=== PATIENT | male | born 1930 | race Caucasian/White ===

== ENCOUNTER 2017-07-07 11:38 | Inpatient (IN) | payer MEDICARE, BC ==
[2017-07-07 12:12] LABS: INR-International Normal Ratio 1.4; Prothrombin Time 17.9 SEC (12.0-14.7)
[2017-07-07 12:14] LABS: #Basophils 0.1 thou/uL (0.0-0.2); #Eosinphils 0.1 thou/uL (0.0-0.7); #Lymphocytes 0.9 thou/uL (1.20-3.40); #Monocytes 0.6 thou/uL (0.11-0.59); #Neutrophils 7.7 thou/uL (1.40-6.50); %Eosinophils 0.6 % (0.0-10.0); %Lymphocytes 9.3 % (21.0-51.0); %Monocytes 6.2 % (0.0-10.0); %Neutrophils 82.9 % (42.0-75.0); Hemoglobin 15.2 g/dL (14.0-18.0); Mean Corpuscular HGB CONC 34.9 g/dL (32.0-36.0); Mean Corpuscular Hemoglobin 31.4 pg (27.0-31.0); Mean Corpuscular Volume 89.9 fl (80.0-94.0); Mean Platelet Volume 7.5 fL (7.4-10.4); Platelet Count 194 thou/uL (130-400); RBC Distribution Width 11.6 % (11.5-14.5); Red Blood Cell (RBC) Count 4.84 mill/uL (4.70-6.10); White Blood Cell (WBC) Count 9.3 thou/uL (4.8-10.8)
[2017-07-07 12:20] LABS: ALT (SGPT) 14 U/L (8-55); AST (SGOT) 15 U/L (5-34); Albumin 4.1 g/dL (3.4-4.8); Alkaline Phosphatase 68 U/L (40-150); Anion Gap 19 mmol/L (10-20); BUN (Urea Nitrogen) 28 mg/dL (8.4-25.7); CK (CPK) 68 U/L (30-200); CKMB 1.5 ng/mL (0-6.6); Calc. Creatinine Clearance 0 mL/min (70-130); Calcium 9.8 mg/dL (7.8-10.44); Carbon Dioxide 21 mmol/L (23-31); Chloride 102 mmol/L (98-107); Estimated GFR-MDRD 43; Globulin 3.2 g/dL (2.4-3.5); Glucose 218 mg/dL (83-110); Lipase 41 U/L (8-78); Potassium 4.6 mmol/L (3.5-5.1); Protein, Total 7.3 g/dL (5.8-8.1); Sodium 137 mmol/L (136-145); Troponin I Less than 0.010 ng/mL (< 0.028)
--- NOTE | 2017-07-07 13:09 | CT ---
BRAIN CT WITHOUT IV CONTRAST: History: 86-year-old male with history of syncope, puncture wound to head. FINDINGS: There is atrophy and chronic white matter ischemic changes. There is a small focus of somewhat lobula osmin acute hemorrhage adjacent to the falx at the frontal region on the left side, evidence for a smal l subdural hemorrhage. There may be a very tiny subarachnoid component. No mass or midline shift. IMPRESSION: Small focus of acute hemorrhage in the left parafalcine region which I favor to be a small subdural h emorrhage. There may be a small subarachnoid component. No mass effect or midline shift. Findings were discussed with Dr. Conner at 1230 p.m. Code CR POS: [facility]
--- NOTE | 2017-07-07 13:11 | RAD ---
UPRIGHT PORTABLE CHEST ONE VIEW: History: 86-year-old male with history of syncope, seizure like activity, head injury. Comparison: 06-13-10 FINDINGS: Heart size is within normal limits. The lungs are clear. Left ICD. IMPRESSION: No acute intrathoracic disease. Borderline sized heart. Atherosclerosis of the aorta. Stable from [place] or study. POS: [facility]
--- NOTE | 2017-07-07 14:01 | CON ---
DATE OF CONSULTATION: 07/07/2017 ATTENDING PHYSICIAN: Prieto Rincon M.D. HISTORY OF PRESENT ILLNESS: The patient is an 86-year-old male with a past medical history of coronary artery disease with pacemaker defibrillator; diabetes; hypertension; hyperlipidemia; pul monary disease, on Coumadin who presented to [facility] in [facility] after syncope versus fall while working out in [employer]. The patient reports that he has been working out, was sitting in a chair and got up suddenly when he believes he passed out. He hit the back of his head on the floor with short period of LOC. [facility], where CT head was done on arrival. CT head was notable for a small intrac ranial hemorrhage in the left frontal region along the longitudinal fissure. There is no mass effect or midline shift. The patient's INR is 1.4. I am seeing the patient at the bedside. He is awake a nd alert, no acute distress. GCS of 15. He has no focal neurologic deficits appreciated. PAST MEDICAL HISTORY: Coronary artery disease, pacemaker defibrillator, diabetes, hypertension, hype rlipidemia, and pulmonary disease. PAST SURGICAL HISTORY: Partial lung removal, pacemaker defibrillator. SOCIAL HISTORY: The patient does not smoke, drink or use any drugs. ALLERGIES: He has no known drug allergies. FAMILY HISTORY: Noncontributory. PHYSICAL EXAMINATION: CONSTITUTIONAL: Awake and alert, no acute distress. GCS of 15. HEAD: There is a small laceration to the posterior aspect of the scalp. No active bleeding. No sig nificant soft tissue swelling. EYES: Pupils are equal and reactive to light. Extraocular movements intact. ENT: Oral mucosa is pink, intact, moist. No evidence of trauma. He has a normal voice. NECK: Nontender to palpation. Free active range of motion. No meningismus or nuchal rigidity. CARDIOVASCULAR: Regular rate and rhythm. LUNGS: The patient is breathing comfortably with symmetric chest expansion. No evidence of dyspnea. MUSCULOSKELETAL: Good muscle tone to bilateral upper and lower extremities. No focal motor weakness . No deformities or trauma appreciated. NEUROLOGIC: He is A and O x4. Normal [id number]. Normal cranial nerve exam. No speech changes . No focal neurologic deficits are appreciated. ASSESSMENT AND PLAN: This is an 86-year-old male, status post syncope with fall, hitting h is head on the floor after he got up suddenly in a chair with CT head which was notable for small lef t frontal intracranial hemorrhage along the longitudinal fissure. There is no midline shift or mass effect. The patient is on Coumadin and INR is 1.4 here in the Emergency Department. We will stop an y Coumadin or other anticoagulants. The patient will be admitted to the ICU for close monitoring, fr equent neuro checks, head of bed will be elevated at 30 degrees. We will recommend a repeat head CT first thing in the morning, which I have ordered: The patient will be admitted primary to the Trauma Service. Please reach out to the Neurosurgery Service for additional questions or concerns.
[2017-07-07] MEDS ORDERED: Adacel (T-DAP) 0.5 ML VIAL ONE (14:56)
[2017-07-07 15:21] LABS: Troponin I Less than 0.010 ng/mL (< 0.028)
[2017-07-07 15:49] VITALS: BMI 32.7
[2017-07-07] MEDS ORDERED: Dextrose 50% Abboject 50 ML SYRINGE SLOW IVP PRN (16:56)
[2017-07-07] MEDS ORDERED: Acetaminophen 500 MG TAB PO PRN (16:56)
[2017-07-07] MEDS ORDERED: Dextrose 5% in Water 1,000 ML IV PRN (16:56)
[2017-07-07] MEDS ORDERED: Insulin Regular 300 UNITS/3 ML VIAL SC PRN (16:56)
[2017-07-07] MEDS ORDERED: Sodium Chloride 0.9% 1,000 ML IV SCH (17:00)
[2017-07-07] MEDS ORDERED: Terazosin HCl 5 MG CAP PO SCH (21:00)
[2017-07-07] MEDS ORDERED: GLUCOSAMINE SULFATE 500 MG PO SCH (21:00)
[2017-07-07] MEDS ORDERED: Melatonin 3 MG TAB PO SCH (21:00)
[2017-07-07] MEDS ORDERED: Simvastatin 5 MG TAB PO SCH (21:00)
--- NOTE | 2017-07-07 22:24 | ULT ---
BILATERAL CAROTID DUPLEX ULTRASOUND: HISTORY: Syncope. FINDINGS: Real-time color Doppler evaluation of the right and left carotid system shows some mild intimal thick ening and plaque formation bilaterally. On the right side, the peak systolic velocities of the common carotid are 86 cm per second. The inte rnal carotid velocity is 55 cm per second. The external carotid velocities are 81 cm per second. The left side shows peak systolic velocities of the common carotid at 96 cm per second. Internal car otid velocity is 55 cm per second. External carotid velocity is 58 cm per second. Vertebral flow is antegrade bilaterally. IMPRESSION: No evidence of hemodynamically significant stenosis of either internal carotid artery. POS: [facility]
[2017-07-07] MEDS: Carvedilol 3.125 MG TAB PO SCH (22:29)
[2017-07-07] MEDS: Furosemide 40 MG TAB PO SCH (22:30)
[2017-07-07] MEDS: Bupropion 100 MG SR TAB PO SCH (22:30)
--- NOTE | 2017-07-08 01:57 | HP ---
DATE OF ADMISSION: 07/07/2017 ADMITTING PHYSICIAN: Dr. Smith Sagastume. CONSULTING PHYSICIAN: Dr. Prieto Rincon, Neurosurgery. HISTORY OF PRESENT ILLNESS: Mr. Montoya is an 86-year-old male who was working out at the gym today w hen he halts to rest on a bench to recover. He got up and took a few steps when he blacked out, fall ing to the ground. He was taken to [facility] ER where a subdural hematoma was identified . He was then transported to [facility] and directly admitted to the intermediate care area . He was evaluated in [facility] ER by Neurosurgery. He was admitted to the hospital by Trauma Surgery and will continue to be followed closely by Neurosurgery as well. He reports that he has had several episodes of blacking out when he stands up from a seated or lying down position. He has past medical history of pacemaker placement. He was GCS of 15 during evaluation and remains GCS 15. He denies headache, dizziness, change in vision. He denies feeling dizziness or lightheaded at the current time. PAST MEDICAL HISTORY: 1. Anxiety. 2. Congestive heart failure. 3. Coronary artery disease. 4. Depression. 5. Diabetes. 6. Hyperlipidemia. 7. Hypertension. 8. Obstructive sleep apnea, requiring use of CPAP. 9. Dysthymic disorder. 10. Acquired hypothyroidism. 11. Chronic atrial fibrillation. 12. Coronary atherosclerosis. 13. Chronic dermatitis due to solar radiation. 14. Actinic keratosis. 15. Inflamed seborrheic keratosis. 16. Neoplasm of uncertain behavior of skin. 17. Symptomatic bradycardia. 18. Ischemic cardiomyopathy. PAST SURGICAL HISTORY: 1. Pacemaker placement. 2. Angioplasty. 3. Right lower lobe lung resection. 4. Umbilical hernia repair. SOCIAL HISTORY: The patient denies alcohol use, drug use or tobacco use. ALLERGIES: No known drug allergies. CURRENT MEDICATIONS: 1. Alprazolam 1 mg t.i.d. 2. Aspirin 325 mg daily. 3. Glyburide/metformin 2.5/500 two tabs b.i.d. 4. Nitroglycerin 0.4 mg sublingual every 5 minutes p.r.n. 5. Warfarin 5 mg p.o. daily. 6. Bupropion 100 mg b.i.d. 7. Carvedilol 3.125 mg b.i.d. 8. Prozac 20 mg daily. 9. Furosemide 40 mg b.i.d. 10. Glucosamine 500 mg daily. 11. Inositol 500 mg daily. 12. Levothyroxine 25 mcg daily. 13. Losartan 25 mg daily. 14. Magnesium 250 mg daily. 15. Melatonin 5 mg at bedtime. 16. Multivitamin, iron, minerals/folic acid 1 p.o. daily. 17. Restasis 0.05% each eye daily. 18. Simvastatin 10 mg p.o. at bedtime. 19. Terazosin 10 mg p.o. at bedtime. 20. Vitamin B one tablet daily. LABORATORY STUDIES: Hematology: WBC 9.3, RBC 4.84, hemoglobin 15.2, hematocrit 43.5, platelets 194. Coagulation: PT 17.9, INR 1.4. Chemistry: Sodium 137, potassium 4.6, chloride 102, carbon dioxid e 21, BUN 28, creatinine 1.56, glucose 218. DIAGNOSTIC IMAGING: Parafalcine intracranial hemorrhage. EKG, paced rhythm. REVIEW OF SYSTEMS: Constitutional: The patient denies chills, fever, recent weight loss or generali zed malaise. HEENT: Denies headache, dizziness, rhinorrhea, otorrhea, sore throat or neck pain. Re spiratory/chest: The patient denies chest tenderness, shortness of breath, wheezing, or cough. Card iovascular: Denies chest pain. Reports syncopal episode. Reports multiple syncopal episodes in rec ent past. Gastrointestinal: Denies abdominal pain, appetite change, diarrhea, nausea, vomiting, or constipation. Genitourinary: Denies hematuria or dysuria. Musculoskeletal: Denies arthralgias, my algias. Skin: Denies rash, denies integumentary trauma. Neurologic: Denies headache, denies dizzi ness. PHYSICAL EXAMINATION: VITAL SIGNS: Temperature 98.9, pulse 79, respirations 18, O2 sat 100% room air, blood pressure 123/6 2. CONSTITUTIONAL: Well-developed, well-nourished male, in no acute distress, nontoxic appearing. HEENT: Atraumatic, normocephalic. Pupils are equal, round, and reactive to light. No posterior nec k tenderness. NECK: Trachea midline. CARDIOVASCULAR: Regular rate and rhythm. Heart sounds normal. RESPIRATORY/CHEST: Chest movement symmetrical. Bilateral breath sounds clear. No respiratory distr ess. ABDOMEN: Soft, nontender, nondistended. Pelvis stable. EXTREMITIES: Moves all extremities well. Cap refill brisk. Neurovascularly intact. NEUROLOGIC: GCS 15, awake, alert, and oriented x3. No focal deficits. ASSESSMENT: 1. An 86-year-old male status post ground level fall. 2. Small subdural hematoma. 3. Syncopal episode with multiple syncopal episodes in recent past. 4. Past medical history of pacemaker placement. 5. Past medical history of hypertension, present on arrival. 6. Past medical history of diabetes, present on arrival. 7. Past history of depression, present on arrival. 8. Past history of thyroid disease, present on arrival. 9. Past history of anxiety, present on arrival. PLAN: 1. Admit to intermediate care unit. 2. Serial neurologic exams. 3. Consult to Neurosurgery, Dr. Rincon. 4. Repeat CT scan of the brain in a.m. 5. Head of bed at 30 degrees. 6. Clear liquid diet. 7. Syncopal workup including EKG, echocardiogram, pacemaker interrogation, bilateral carotid ultraso und. 8. Hold Coumadin and aspirin. 9. Tylenol p.r.n. for headache. 10. Resume home medications as appropriate. The patient was reviewed with Dr. Sagastume who agrees with plan.
[2017-07-08 04:46] LABS: #Eosinphils 0.1 thou/uL (0.0-0.7); #Lymphocytes 1.4 thou/uL (1.20-3.40); #Monocytes 0.8 thou/uL (0.11-0.59); #Neutrophils 5.8 thou/uL (1.40-6.50); %Basophils 0.2 % (0.0-1.0); %Eosinophils 0.9 % (0.0-10.0); %Lymphocytes 17.4 % (21.0-51.0); %Monocytes 10.3 % (0.0-10.0); %Neutrophils 71.1 % (42.0-75.0); Hemoglobin 13.5 g/dL (14.0-18.0); Mean Corpuscular HGB CONC 33.8 g/dL (32.0-36.0); Mean Corpuscular Hemoglobin 31.1 pg (27.0-31.0); Mean Corpuscular Volume 91.8 fl (80.0-94.0); Platelet Count 194 thou/uL (130-400); Red Blood Cell (RBC) Count 4.35 mill/uL (4.70-6.10); White Blood Cell (WBC) Count 8.1 thou/uL (4.8-10.8)
[2017-07-08 04:50] LABS: INR-International Normal Ratio 1.5; PTT 33.4 SEC (22.9-36.1); Prothrombin Time 18.7 SEC (12.0-14.7)
[2017-07-08 04:55] LABS: Anion Gap 11 mmol/L (10-20); BUN (Urea Nitrogen) 27 mg/dL (8.4-25.7); Calc. Creatinine Clearance 53 mL/min (70-130); Calcium 9.3 mg/dL (7.8-10.44); Carbon Dioxide 29 mmol/L (23-31); Chloride 101 mmol/L (98-107); Estimated GFR-MDRD 44; Glucose 158 mg/dL (83-110); Phosphorus 2.2 mg/dL (2.3-4.7); Potassium 4.3 mmol/L (3.5-5.1); Sodium 137 mmol/L (136-145)
[2017-07-08] MEDS ORDERED: Levothyroxine Sodium 25 MCG TAB PO SCH (06:00)
--- NOTE | 2017-07-08 07:41 | CT ---
PRELIMINARY REPORT/[facility]/EMERGENTY AFTER-HOURS PROCEDURE CT Head Without Intravenous Contrast EXAM DATE/TIME: Exam ordered 07/08/2017 5:46 AM CLINICAL HISTORY: 86 years old, male; Condition or disease; Other: Follow up ich TECHNIQUE: Axial computed tomography images of the head/brain without intravenous contrast. COMPARISON: No relevant prior studies available. Patient was scanned at outside facility. FINDINGS: Brain: There is acute intracranial hemorrhage seen overlying the LEFT parafalcine frontal lobe. There is a LEFT frontoparietal convexity hematoma with blood in different stages suggestive of acute on ch ronic subdural hemorrhage. No significant white matter disease. Ventricles: Normal. No ventriculomegaly. Bones/joints: Normal. No acute fracture. Soft tissues: Normal. Sinuses: Unremarkable as visualized. No acute sinusitis. Mastoid air cells: Unremarkable as visualized. No mastoid effusion. 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 Thank you for allowing us to participate in the care of your patient. Dictated and Authenticated by: Kimani Sidhu MD 07/08/2017 6:23 AM Central Time ([place] & [place]) FINAL REPORT NONCONTRAST HEAD CT: COMPARISON: 07/07/17. HISTORY: Intracranial hemorrhage. Followup examination. TECHNIQUE: A noncontrast head CT is performed from the skull base to the skull vertex. FINDINGS: This report is in agreement with the preliminary report by [facility]. Redemonstration of intracranial hemo rrhage along the medial aspect of the left frontal extraaxial and intraaxial spaces suggesting a comb ination of cortical and subarachnoid blood. Additional subarachnoid blood is noted along the left fr ontotemporal convexity, unchanged. There do appear to be some increased densities along the left tem poral convexity suggesting subacute and/or possibly chronic subdural blood. IMPRESSION: Intracranial hemorrhage as described above. Continued surveillance. POS: [facility]
[2017-07-08] MEDS ORDERED: INOSITOL PO SCH (09:00)
[2017-07-08] MEDS ORDERED: Losartan 25 MG TAB PO SCH (09:00)
[2017-07-08] MEDS ORDERED: FLUoxetine HCl 20 MG CAP PO SCH (09:00)
[2017-07-08] MEDS ORDERED: cycloSPORINE 0.05% Ophthalmic Droperette EA EYE SCH (09:00)
[2017-07-08] MEDS ORDERED: Magnesium Oxide 250 MG TAB PO SCH (09:00)
[2017-07-08] MEDS ORDERED: Multivitamin W/ Minerals 1 TAB PO SCH (09:00)
[2017-07-08] MEDS ORDERED: GLUCOSAMINE SULFATE 500 MG PO SCH (09:00)
[2017-07-08] MEDS ORDERED: Famotidine 20 MG TAB PO SCH (09:00)
[2017-07-08] MEDS ORDERED: Stress 600 With Zinc 1 TAB PO SCH (09:00)
[2017-07-08] MEDS: Bupropion 100 MG SR TAB PO SCH (09:03)
[2017-07-08] MEDS: Carvedilol 3.125 MG TAB PO SCH (09:03)
[2017-07-08] MEDS: Furosemide 40 MG TAB PO SCH (09:03)
--- NOTE | 2017-07-08 14:34 | EKG ---
Test Reason : Blood Pressure : / mmHG Vent. Rate : 077 BPM Atrial Rate : 049 BPM P-R Int : 000 ms QRS Dur : 144 ms QT Int : 424 ms P-R-T Axes : 000 151 002 degrees QTc Int : 479 ms Ventricular-paced rhythm Underlying rhythm atrial fibrillation Confirmed by DR. Jacquelien LONDONO ([id number]) on 07/08/2017 2:33:52 PM Referred By: TERRENCE Confirmed By:DR. Jacqueline LONDONO
[2017-07-08 15:45] VITALS: BP 105/63; TEMP 98.6
== END 2017-07-08 17:16 | disposition home or self-care (01) | DRG 66 ==
LOC: SCSER 11:38 → IMCU/EMU 12:40
PROVIDERS: ADMIT Surgery; ATTEND Surgery
DX: I62.00 Nontraumatic subdural hemorrhage, unspecified (principal); F41.9 Anxiety disorder, unspecified; I25.10 Atherosclerotic heart disease of native coronary artery without angina pectoris; F32.9 Major depressive disorder, single episode, unspecified; E11.9 Type 2 diabetes mellitus without complications; E78.5 Hyperlipidemia, unspecified; I10 Essential (primary) hypertension; G47.33 Obstructive sleep apnea (adult) (pediatric); E03.9 Hypothyroidism, unspecified; I48.2 Chronic atrial fibrillation; L57.8 Other skin changes due to chronic exposure to nonionizing radiation; Z85.828 Personal history of other malignant neoplasm of skin; R40.2413 Glasgow coma scale score 13-15, at hospital admission; Z95.810 Presence of automatic (implantable) cardiac defibrillator; S01.01XA Laceration without foreign body of scalp, initial encounter
CPT/HCPCS: 36415; 36416; 70450; 71045; 80048; 80053; 82550; 82553; 83690; 83735; 84100; 84484; 85025; 85610; 85730; 90471; 90715; 93005; 93010; 93306; 93880; G8978-GP-CI; G8979-GP-CI; G8980-GP-CI

== ENCOUNTER 2017-08-18 10:14 | Outpatient (CLI) | payer MEDICARE, BC ==
--- NOTE | 2017-08-18 11:51 | CT ---
CT BRAIN: History: Follow up subdural hematoma. Technique: Noncontrast enhanced CT images of the brain obtained. Date: 08-18-17 Comparison: 07-18-17 FINDINGS: There has been interval resolution of the left parafalcine hemorrhage. There is diffuse cortical atrophy seen. There are bilateral subdural chronic hematomas, definitely larger on the left than on the right. Maxi mum thickness in the left subdural collection measures approximately 12 mm while on the right approxi mately 5 mm. Both subdural collections contain some mixed echogenic material, definitely denser than on a previous comparison exam suggesting some chronic and some acute components. No significant midline shift is seen. IMPRESSION: Mixed density bilateral subdural hematomas, larger on the left than on the right. POS: [facility]
== END 2017-08-18 10:15 | disposition home or self-care (01) ==
LOC: TBSIIMAG 10:14
PROVIDERS: ATTEND Neurological Surgery
DX: I62.00 Nontraumatic subdural hemorrhage, unspecified (principal)
CPT/HCPCS: 70450

== ENCOUNTER 2017-09-25 14:24 | Outpatient (CLI) | payer MEDICARE, BC ==
--- NOTE | 2017-09-25 15:56 | CT ---
CT BRAIN WITHOUT CONTRAST: HISTORY: Subdural hematoma. I62.03. COMPARISON: CT brain 08/15/17. FINDINGS: The left convexity subdural hematoma has markedly decreased in size. The right convexity subdural he matoma also is markedly decreased in size. Using the same max plan of measurement, the left subdural hematoma measures up to 6 mm, previously 11 mm. The right convexity subdural hematoma measures appr oximately 2 mm, previously just under 5 mm. No midline shift. No significant mass effect. The sulc i are patent. No acute infarction. The paranasal sinuses and mastoids appear improved. IMPRESSION: Improving bilateral subdural hematomas. POS: [facility]
== END 2017-09-25 14:25 | disposition home or self-care (01) ==
LOC: TBSIIMAG 14:24
PROVIDERS: ATTEND Neurological Surgery
DX: I62.00 Nontraumatic subdural hemorrhage, unspecified (principal)
CPT/HCPCS: 70450

== ENCOUNTER 2019-07-02 14:17 | Inpatient (IN) | payer MEDICARE, BC ==
[2019-07-02] MEDS ORDERED: Piperacillin/Tazobactam 4.5 GM VIAL ONE (14:35)
[2019-07-02] MEDS ORDERED: Vancomycin 1 GM/200 ML BAG ONE (14:42)
[2019-07-02 14:59] LABS: Hemoglobin 13.1 g/dL (14.0-18.0); Mean Corpuscular Hemoglobin 30.3 pg (27.0-31.0); Mean Corpuscular Volume 94.7 fL (78.0-98.0); Mean Platelet Volume 8.1 fL (7.4-10.4); Platelet Count 310 thou/uL (130-400); RBC Distribution Width 13.2 % (11.5-14.5); Red Blood Cell (RBC) Count 4.32 mill/uL (4.70-6.10); White Blood Cell (WBC) Count 28.8 thou/uL (4.8-10.8)
[2019-07-02 15:00] LABS: INR-International Normal Ratio 2.9; Prothrombin Time 30.4 SEC (12.0-14.7)
[2019-07-02 15:01] LABS: PTT 40.3 SEC (22.9-36.1)
[2019-07-02 15:05] LABS: Bilirubin Negative (Negative); Blood, Urine Negative (Negative); Clarity Clear (Clear); Glucose, Urine (Dipstick) Normal (Negative); Leukocyte Negative Leu/uL (Negative); Nitrite Negative (Negative); Protein, Urine (Dipstick) 20 mg/dL (Neg-Trace); Urobilinogen Normal mg/dL (Less than 2)
[2019-07-02 15:08] LABS: ALT (SGPT) 70 U/L (8-55); AST (SGOT) 48 U/L (5-34); Albumin 2.5 g/dL (3.4-4.8); Alkaline Phosphatase 193 U/L (40-110); Anion Gap 12 mmol/L (10-20); BUN (Urea Nitrogen) 28 mg/dL (8.4-25.7); CK (CPK) 14 U/L (30-200); Calc. Creatinine Clearance 0 mL/min (70-130); Calcium 8.9 mg/dL (7.8-10.44); Carbon Dioxide 34 mmol/L (23-31); Chloride 97 mmol/L (98-107); Estimated GFR-MDRD 56; Globulin 3.7 g/dL (2.4-3.5); Glucose 156 mg/dL (83-110); Potassium 3.8 mmol/L (3.5-5.1); Protein, Total 6.2 g/dL (5.8-8.1); Sodium 139 mmol/L (136-145)
[2019-07-02 15:15] LABS: Band 7 % (5-11); Lymphocytes 6 % (21-51); MDiff Complete? YES; Monocytes 6 % (0-10); Neutrophil 81 % (42-75); Platelet Morphology Comment Appears Adequate; RBC Morphology Normal
--- NOTE | 2019-07-02 15:45 | RAD ---
CHEST ONE VIEW: 07/02/19 INDICATION: History of ruptured gallbladder and abdominal pain. COMPARISON: Prior exam dated 07/01/19. FINDINGS: Right sided pleural effusion persists. Cardiomegaly is stable appearing. Tiny left pleural effusion i s similar appearing. Pulmonary vascular congestion is similar appearing. Pacemaker is unchanged. No p neumothorax is noted. IMPRESSION: Stable mild CHF. POS: [facility]
[2019-07-02] MEDS ORDERED: Phytonadione 10 MG/ML AMP SLOW IVP SCH (17:45)
--- NOTE | 2019-07-02 17:47 | PDOC.FPRHP ---
Addendum entered and electronically signed by Alonso Miranda MD 07/03/19 02:24 : Patient has no PCP. Original Note: - History of Present Illness Chief Complaint: RUQ Discomfort History of Present Illness: Patient is an 88 y/o male who presents to the ED from an outside rehab facility for evaluation of RUQ discomfort. Patient states that the discomfort has been present for weeks, but he is unsure if he would "actually call it pain." Patient denies radiation, palliative or aggravating factors, and states that the feelings of discomfort have been relatively persistent. The patient is not concerned with the discomfort at this time. Patient denies fevers , chills, worsening ABD pain, N/V/D/C, discomfort worse with eating, odynophagia , dysphagia, HAs, visual disturbances, cough, sore throat, SOB or myalgias/ arthralgias. Patient states that he does have a history of frequent falls and is unsure why. Per chart review, patient was started on Levofloxacin and Ceftriaxone as an outpatient, but patient is unsure of his current medication regimen. He was taken to [facility] today for a CT ABD, and was instructed to return based on results. ED Course: s/p Va - Allergies/Adverse Reactions Allergies Allergy/AdvReac Type Severity Reaction Status Date / Time No Known Allergies Allergy Verified 07/02/19 22:48 - Home Medications Medication Instructions Recorded Confirmed Type ALPRAZolam [Alprazolam] 1 tab PO TID PRN 07/07/17 07/07/17 History Carvedilol [Coreg] 1 tab PO BID 07/07/17 07/07/17 History FLUoxetine HCl [Prozac] 20 mg PO DAILY 07/07/17 07/07/17 History Furosemide 1 tab PO BID 07/07/17 07/07/17 History Glucosamine Sulfate 500 mg PO ASDIR 07/07/17 07/07/17 History Inositol 500 mg PO DAILY 07/07/17 07/07/17 History Levothyroxine Sodium [Synthroid] 25 mcg PO DAILY 07/07/17 07/07/17 History Losartan [Cozaar] 25 mg PO DAILY 07/07/17 07/07/17 History Magnesium 250 mg PO DAILY 07/07/17 07/07/17 History Melatonin 5 mg PO HS 07/07/17 07/07/17 History Multivit,Iron,Mins/Folic Acid 1 each PO DAILY 07/07/17 07/07/17 History [[facility] Heart Tab] Nitroglycerin [Nitrostat] 0.4 mg SL Q5MIN PRN 07/07/17 07/07/17 History Restasis [Restasis Ophth Drops] 1 drop EA EYE DAILY 07/07/17 07/07/17 History Simvastatin [Zocor] 1 tab PO HS 07/07/17 07/07/17 History Terazosin HCl 1 tab PO HS 07/07/17 07/07/17 History Vitamin B Complex [B Complex] 1 tablet PO DAILY 07/07/17 07/07/17 History buPROPion HCl [buPROPion HCl ER] 1 tab PO BID 07/07/17 07/07/17 History glyBURIDE/metFORMIN HCl 2 tab PO BID 07/07/17 07/07/17 History [glyBURIDE/metFORMIN] Acetaminophen [Tylenol Extra 1,000 mg PO Q6H PRN tab 07/08/17 Rx Strength] - History PMHx: Anxiety, Depression, CHF, CAD, DM, HLD, HTN,COPD (Untreated), Hypothyroidism, A-Fib, PSHx: Cardiac Cath, RLL Lobectomy FHx: Patient denies a history of GI dysfunction or malignancy Social: Patient states that he drinks a glass of wine on occasion, but denies Tobacco and Drug Abuse. Code: DNAR - Review of Systems General: denies: fever/chills, weight/appetite/sleep changes, fatigue Eyes: denies: vision changes ENT: reports: nasal congestion. denies: rhinorrhea Respiratory: denies: cough, shortness of breath, exercise intolerance Cardiovascular: denies: chest pain, edema Gastrointestinal: denies: nausea, vomiting, diarrhea, constipation, abdominal pain, GI bleeding Genitourinary: denies: dysuria, discharge Skin: denies: rashes, jaundice Neurological: reports: other (Occasional falls - etiology unknown) Psychological: reports: anxiety, depression - Vital signs BP: [120/78] HR: [89] RR: [] Tmax: [97.8] Pox: [98]% on [Room] Wt: [100 kg] - Physical Exam Constitutional: NAD, awake, alert and oriented, well developed HEENT: normocephalic and atraumatic, PERRLA, EOMI, conjunctiva clear, no scleral icterus, grossly normal vision, grossly normal hearing Neck: supple, FROM, trachea midline, no LAD, no JVD Chest: no-tender to palpation, no lesions Heart: RRR, normal S1/S2, no murmurs/rubs/gallops, pulses present Lungs: CTAB, no respiratory distress, good air movement, no rales/rhonchi, no wheezing, no retractions Abdomen: soft, non-tender, bowel sounds present, other (Liver edge palpable 1-2 inches below costal margin) Musculoskeletal: normal structure, ROM grossly normal Neurological: no focal deficit Skin: no rash/lesions, capillary refill <2 seconds, no jaundice Heme/Lymphatic: no unusual bruising or bleeding, no purpura, no petechia, no LAD Psychiatric: normal mood and affect, good judgment and insight, intact recent and remote memory FMR H&P: Results - Labs Result Diagrams: 07/02/19 14:33 07/02/19 14:33 Lab results: WBC 28.8 thou/uL (4.8-10.8) H 07/02/19 14:33 Hgb 13.1 g/dL (14.0-18.0) L 07/02/19 14:33 Hct 40.9 % (42.0-52.0) L 07/02/19 14:33 MCV 94.7 fL (78.0-98.0) 07/02/19 14:33 Plt Count 310 thou/uL (130-400) 07/02/19 14:33 Band Neuts % (Manual) 7 % (5-11) 07/02/19 14:33 Sodium 139 mmol/L (136-145) 07/02/19 14:33 Potassium 3.8 mmol/L (3.5-5.1) 07/02/19 14:33 Chloride 97 mmol/L (98-107) L 07/02/19 14:33 Carbon Dioxide 34 mmol/L (23-31) H 07/02/19 14:33 BUN 28 mg/dL (8.4-25.7) H 07/02/19 14:33 Creatinine 1.23 mg/dL (0.7-1.3) 07/02/19 14:33 Glucose 156 mg/dL (83-110) H 07/02/19 14:33 Lactic Acid 2.0 mmol/L (0.5-2.2) 07/02/19 14:33 Calcium 8.9 mg/dL (7.8-10.44) 07/02/19 14:33 Total Bilirubin 1.0 mg/dL (0.2-1.2) 07/02/19 14:33 AST 48 U/L (5-34) H 07/02/19 14:33 ALT 70 U/L (8-55) H 07/02/19 14:33 Alkaline Phosphatase 193 U/L (40-110) H 07/02/19 14:33 Creatine Kinase 14 U/L (30-200) L 07/02/19 14:33 Serum Total Protein 6.2 g/dL (5.8-8.1) 07/02/19 14:33 Albumin 2.5 g/dL (3.4-4.8) L 07/02/19 14:33 Urine Ketones Negative mg/dL (Negative) 07/02/19 14:45 Urine Blood Negative (Negative) 07/02/19 14:45 Urine Nitrite Negative (Negative) 07/02/19 14:45 Ur Leukocyte Esterase Negative Phyllis/uL (Negative) 07/02/19 14:45 - Radiology Interpretation Chest x-ray Status: report reviewed by me (Stable, Mild CHF) CT scan - abdomen Status: report reviewed by me Additional comment: Large Gallbladder Fossa Multi-Loculated Abscess, probably secondary to Perforated Cholecystitis, with Subscapular Hepatic Abscess US - abdomen Status: report reviewed by me Additional comment: RUQ US: Gallbladder Sludge, Complex Cystic Mass adjacent to Gallbladder FMR H&P: A/P - Problem List (1) Anxiety Current Visit: Yes Status: Acute Code(s): F41.9 - ANXIETY DISORDER, UNSPECIFIED (2) CHF (congestive heart failure) Current Visit: Yes Status: Acute Code(s): I50.9 - HEART FAILURE, UNSPECIFIED (3) CAD (coronary artery disease) Current Visit: Yes Status: Acute Code(s): I25.10 - ATHSCL HEART DISEASE OF [place] CORONARY ARTERY W/O ANG PCTRS (4) Depression Current Visit: Yes Status: Acute Code(s): F32.9 - MAJOR DEPRESSIVE DISORDER , SINGLE EPISODE, UNSPECIFIED (5) Diabetes Current Visit: Yes Status: Acute Code(s): E11.9 - TYPE 2 DIABETES MELLITUS WITHOUT COMPLICATIONS (6) HLD (hyperlipidemia) Current Visit: Yes Status: Acute Code(s): E78.5 - HYPERLIPIDEMIA, UNSPECIFIED (7) HTN (hypertension) Current Visit: Yes Status: Acute Code(s): I10 - ESSENTIAL (PRIMARY) HYPERTENSION (8) AYDEN (obstructive sleep apnea) Current Visit: Yes Status: Acute Code(s): G47.33 - OBSTRUCTIVE SLEEP APNEA ( ADULT) (PEDIATRIC) (9) A-fib Current Visit: Yes Status: Acute Code(s): I48.91 - UNSPECIFIED ATRIAL FIBRILLATION (10) Hypothyroidism Current Visit: Yes Status: Acute Code(s): E03.9 - HYPOTHYROIDISM, UNSPECIFIED - Plan Patient is an 88 y/o male who presents to the ED for evaluation of RUQ discomfort. 1. Sub-Acute Cholecystits Complicated by Perforation, Abscess Formation -Patient admits only to mild discomfort in RUQ -s/p 2L NS and K-Centra in ED -Started on Vancomycin and Zosyn in ED - will continue Zosyn, per GenSurg -WBCs: 28.8 -AST: 48 -ALT: 70 -Alk Phos: 193 -Lactic Acid: 2.0 -RUQ US: Gallbladder sludge w/ cystic mass -CXR: Mild CHF -CT ABD/Pelvis: Large gallbladder fossa multiloculated cyst, likely 2/2 to perforation, abscess -GenSurg: Consulted and aware - recs appreciated -Radiology: Consulted - will plan for CT-guided abscess drainage in AM 2. CHF -Patient states that he has been compliant with his home medication regimen -Denies worsening SOB, peripheral edema, WALL -Physical exam WNL -Will continue home medication regimen and avoid fluid overload 3. A-Fib, Rate-Controlled -s/p Kcentra in ED - will continue to hold Warfarin and DVT PPx -PT: 30.4 / INR: 2.9 / aPTT: 40.3 -Patient is currently rate-controlled - will continue home medication regimen 4. DM2 -Glucose: 156 (07/01) -No documented HgA1c - will not repeat for risk stratification -Continue home medication regimen -ACHS accuchecks -Mild SSI -Hypoglycemia Protocol 4. HLD -Will continue home medication regimen 5. HTN -BP currently at goal -Will continue home medication regimen 6. AYDEN -Patient states that he had used a CPAP machine several years prior but thought that "it didn't help much" -Will consider RT consult for CPAP if patient demonstrates severe sleep disruption 7. Anxiety -Patient does not endorse significant symptoms at this time -Continue home medication regimen 8. Depression -Patient does not endorse significant symptoms at this time -Continue home medication regimen PCP: Gloria Code: DNAR Diet: NPO Activity: Ambulate w/ Assist VTE PPx: None - See Coag Panel Above Dispo: Patient is currently stable and admitted to the Medical Floor for ongoing treatment of sub-acute Cholecystitis, complicated by Perforation and Abscess Formation. Surgery and Radiology consulted from ED, recs appreciated - will likely plan for CT-guided abscess drainage tomorrow AM based on advanced age, risk factors, and desire to minimize aggressive intervention. Will manage other chronic medical conditions as per above. Expected LOS > 48H. FMR H&P: Upper Level - Plan Date/Time: 07/02/19 5229 IMariah DO, have evaluated this patient and agree with findings/plan as outlined by web development intern resident. Pertinent changes/additions are listed here. Pt is a 88 yo M with PMH of cAfib s/p pacemaker, HFrEF (EF 30-40% 07/2017), AYDEN, HTN, HLD, DM, CAD, hypothyroidism presenting for RUQ abd pain x2-3 days from [facility]. He had labs done today from rehab which showed an elevated WBC and was sent in for CT scan. Radiologist contacted Dr. Conteh with results of likely perforated gallbladder with large cyst consistent with abscess formation. Dr. Conteh then sent patient in for evaluation and admission. Dr. Mendez contacted from ED. VS: T97.8, P93, R18, O2100% on RA, BP 120/78 PE: Gen: NAD HEENT: Moist MM, no LAD Heart: irregularly irregular, no murmurs or extra sounds. Distal pulses 2+ Lungs: fine crackles at b/l bases, no wheezing. No increased work of breathing Abd: soft, mildly distended, somewhat tender to palpation diffusely, but no rebound or guarding, BS+, no masses or hernias Ext: no cyanosis or edema Skin: no rashes Psych: AOx3 Pertinent Labs/Imaging: WBC 28.8, Neutrophils 81%, Bands 7% INR 2.9 BUN/Cr: 28/1.23, GFR 56 AST 48, ALT 70, Alk Phos 193, Tbili 1.0 CT Abd/Pelv: Large gallbladder fossa multiloculated abscess, likely from perforated cholecystitis, multiloculated subcapsular hepatic abscess at dome of R lobe of liver RUQ US: 10cm x 7cm x7cm cystic mass consistent with abscess and gallbladder wall thickening. A/P: Leukocytosis 2/2 Perforated Cholecystitis with Abscess: -s/p Vanc and Zosyn in ED. Continue IV Zosyn. Consider adding Flagyl for double anaerobic coverage. ID consulted by Dr. Mendez -Dr. Mendez consulted, appreciate recs -CT guided peritoneal abscess drainage tomorrow, NPO -does not meet criteria for sepsis, no need for blood cx at this time. Continue to monitor closely. Chronic Afib on [employer] [place] Anticoagulation: -INR 2.9 s/p Kcentra for possible surgical intervention -hold Coumadin, daily INR. -Cardiology consulted DM: -SSI, ACHS accuchecks -restart home meds once PO HTN: -at goal at this time, monitor -med rec pending, restart meds as appropriate AYDEN: -nightly CPAP Hypothyroidism: -restart home meds CAD: -hold home ASA HFrEF: -last echo 07/2017 EF 30-40% -MIVF Dispo: Stable, Inpatient, LOS > 2 midnights DVT PPx: SCD GI PPx: IV Protonix Code status: DNR Addendum - Attending - Attending Attestation Date/Time: 07/03/19 7400 I personally evaluated the patient and discussed the management with Dr. Miranda at time of admission. I agree with the History, Examination, Assessment and Plan documented above with any addition or exceptions noted below.
[2019-07-02] MEDS ORDERED: HUM PROTHROMBIN CPLX IV SCH ×2 (18:00→21:15)
[2019-07-02] MEDS ORDERED: HUMAN PROTHROMBIN COMPLX IV SCH ×2 (18:00→21:15)
[2019-07-02] MEDS ORDERED: [UNRECOGNIZED DRUG - OTHER] IV SCH (18:00)
--- NOTE | 2019-07-02 19:24 | ULT ---
GALLBLADDER ULTRASOUND: 07/02/19 HISTORY: Right upper quadrant pain. Abnormal CT scan. FINDINGS: Correlation is made with CT scan from earlier today. A small right pleural effusion is seen. The subc apsular fluid collections noted on the CT scan are not satisfactorily visualized on this exam. No in trahepatic ductal dilatation is seen. There is a complex mass-like structure adjacent to the gallblad magaly measuring 10 x 7.5 x 7.3 cm. There is sludge in the gallbladder without gallstones. The gallbladd er wall measures 3 mm in thickness. The common duct measures 3 mm in diameter. The right kidney cont ains a small cyst in the superomedial aspect measuring 1.7 cm. No definite free fluid is seen in Morr jerica's pouch. A positive Chapa's sign was not elicited on the exam. IMPRESSION: Gallbladder sludge with large complex cystic mass adjacent to the gallbladder suspicious for abscess. POS: [facility]
--- NOTE | 2019-07-02 19:57 | CON ---
DATE OF CONSULTATION: HISTORY OF PRESENT ILLNESS: Kamilah Montoya is an 88-year-old male patient who is at [facility]. The patient was living independently at the [place], but was having problems with falling and declining health. He had been having problems with abdominal pain and hyperglycemia. I have talked to the patient's son and the patient was mentally sharp in the past but in the last 2-3 weeks, has had a cognitive decline. He has been treated for UTI recently. The patient has been having these problems since last summer. The patient recently was seen last week at [facility] after a fall. CAT scan of the head is reported as negative. The patient was seen at this institution in 2018 with an accident where he was treated on the Trauma Service with subdural hematoma, saw by Dr. Rincon, treated nonoperatively. The patient was seen and brought into the emergency room on this occasion. His white count is 28,000, hemoglobin 13. He is hemodynamically stable. He is afebrile. His BUN is 28, creatinine 1.33. Bilirubin is normal at 1.0. AST and ALT are slightly elevated respectively at 48 and 70, alkaline phosphatase is 193. I am able to this speak to the patient and he answers coherently, but he cannot give me details of the past. I called the patient's son who has power of civil litigation attorney. The patient's son, Aidan Montoya, , stated that the patient was in [facility] and the patient was concerned that he might have to go to a snf facility. CAT scan on this admission reveals extensive inflammatory changes subhepatic. The gallbladder cannot be definitely identified. There is seen what is felt to be possible gallstone, but this is uncertain. There is large fluid collection centered about the gallbladder fossa, extending inferiorly, abutting the inferior surface of the right lobe of the liver, all surrounded by fat, surrounding edema, numerous lobulated subcapsular fluid collections along the dome of the right lobe of the liver. There is no intrahepatic ductal dilatation. No hydronephrosis. Again, definite gall stone is not seen. On exam, the patient has minimal tenderness. His abdomen is otherwise soft. He is obese. ALLERGIES: NONE. SOCIAL HISTORY: Tobacco, none. Alcohol, none. MEDICATIONS: Medication list at home; 1. Alprazolam 1 tablet p.o. t.i.d. p.r.n. 2. Carvedilol 1 tab p.o. b.i.d. 3. Prozac 20 mg daily. 4. Furosemide 1 daily. 5. Glucosamine 500 mg as directed. 6. Inositol 500 mg daily. 7. Levothyroxine 25 mcg a day. 8. Losartan (Cozaar) 25 mg daily. 9. Magnesium 250 mg daily. 10. Melatonin 5 mg at bedtime. 11. Multivitamins daily. 12. Nitroglycerin p.r.n. 13. Restasis. 14. Simvastatin. 15. Terazosin. 16. Vitamin B. 17. Bupropion 1 p.o. b.i.d. 18. Glyburide 2 tabs b.i.d. 19. Tylenol 1000 mg q.6 hours p.r.n. PAST SURGICAL HISTORY: Umbilical hernia repair; pacemaker, left subclavian at 57 years of age, the patient had a coronary stent placed. He is followed by Dr. Palm. He is on anticoagulation for atrial fibrillation, on Coumadin 5 mg a day. 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 PAST MEDICAL HISTORY: 1. Anxiety, congestive heart failure, coronary artery disease with prior stent, pacemaker present, atrial fibrillation, on Coumadin, depression, diabetes, hyperlipidemia, hypertension, sleep apnea with CPAP use, dysrhythmic disorder, atrial fibrillation, skin cancer history, cognitive decline recently, balance problems recently, fall following syncopal episodes recently, CAT scan at [facility] last week, normal head. Echocardiogram on record here, 07/08/2017, 30% to 40% ejection fraction, mild atrial regurgitation, mild tricuspid regurgitation. Yarn Skeins Examiner is Dr. Palm. 2. History of fall in 2018, where he was noted to have a small subdural left frontal intracranial hemorrhage, it was treated nonoperatively. PHYSICAL EXAMINATION: HEAD, EYES, EARS, NOSE, AND THROAT: Unremarkable. Sclerae nonicteric. SKIN: Nonjaundiced. LUNGS: Clear to auscultation. CARDIAC: Irregular, regular. ABDOMEN: Soft, obese, mild tenderness without peritoneal signs in right subcostal. EXTREMITIES: Unremarkable. No ankle edema. LABORATORY DATA: As noted above. ASSESSMENT AND PLAN: Severe inflammatory reaction, right subhepatic. The patient has multiple risk factors. I have spent 45 minutes with the patient, spent another 20-30 minutes discussing with the patient's son the patient's healthcare problems and informed the son Aidan, who has power of civil litigation attorney. The patient is a DNR and Aidan Montoya, the patient's son, states that the DNR should be continued. The patient is on Coumadin. We will order Kcentra to reverse this. I have discussed with Radiology Dr. Bal, will order a CT-guided drainage of the peritoneal abscess of hepatic fossa tomorrow, realizing that this collection is multifocal, multiloculated, and successful drainage may not be possible. I think that the surgical evaluation or approach to this may have many complications and considering the patient's multiple medical problems, I do not think surgery is warranted at this time in this situation. Family is in agreement. Consideration of nonoperative therapy on a long-term basis should be given and the family is discussing that. We would recommend he be admitted to the medical service and I will follow. We will establish DNR as per discussion with the patient's son. Job ID: [id number]
[2019-07-02] MEDS: Lactated Ringer's 1,000 ML IV SCH (19:59)
[2019-07-02] MEDS ORDERED: Ondansetron ODT 4 MG TAB PO PRN (20:36)
[2019-07-02] MEDS ORDERED: Dextrose 5% in Water 1,000 ML IV PRN (20:52)
[2019-07-02] MEDS ORDERED: Dextrose 50% Abboject 50 ML SYRINGE SLOW IVP PRN (20:52)
[2019-07-02] MEDS ORDERED: Famotidine 20 MG TAB PO SCH (21:00)
[2019-07-02] MEDS ORDERED: [UNRECOGNIZED DRUG - OTHER] IV SCH (21:15)
[2019-07-03] MEDS: Piperacillin/Tazobactam 4.5 GM in Sodium Chloride 0.9% 100 ML IVPB SCH ×5 (00:59→23:30)
[2019-07-03] MEDS ORDERED: Polyethylene Glycol 3350 17 GM Packet PO PRN (01:03)
[2019-07-03 01:19] LABS: Bacteria/HPF None Seen HPF (None Seen); Bilirubin Negative (Negative); Blood, Urine Negative (Negative); Clarity Clear (Clear); Glucose, Urine (Dipstick) Normal (Negative); Leukocyte Negative Leu/uL (Negative); Nitrite Negative (Negative); Protein, Urine (Dipstick) 30 mg/dL (Neg-Trace); RBC/HPF 0-3 HPF (0-3); Squamous Epithelial 0-3 HPF (0-3); Urobilinogen Normal mg/dL (Less than 2)
[2019-07-03 01:23] LABS: Urine Culture Reflex Yes Yes
[2019-07-03] MEDS ORDERED: hydrOXYzine 25 MG TAB PO SCH (01:30)
[2019-07-03] MEDS ORDERED: cloNIDine 0.1 MG TAB PO PRN (04:57)
[2019-07-03] MEDS: Lactated Ringer's 1,000 ML IV SCH (05:31)
[2019-07-03] MEDS: Furosemide 40 MG TAB PO SCH ×2 (05:32→12:42)
[2019-07-03 05:39] LABS: INR-International Normal Ratio 1.4; Prothrombin Time 17.1 SEC (12.0-14.7)
[2019-07-03 06:07] LABS: ALT (SGPT) 61 U/L (8-55); AST (SGOT) 51 U/L (5-34); Albumin 2.2 g/dL (3.4-4.8); Alkaline Phosphatase 162 U/L (40-110); Anion Gap 11 mmol/L (10-20); BUN (Urea Nitrogen) 22 mg/dL (8.4-25.7); Band 3 % (5-11); Bilirubin, Total 1.2 mg/dL (0.2-1.2); Calc. Creatinine Clearance 75 mL/min (70-130); Calcium 7.8 mg/dL (7.8-10.44); Carbon Dioxide 28 mmol/L (23-31); Chloride 103 mmol/L (98-107); Eosinophils 1 % (0-10); Estimated GFR-MDRD 71; Globulin 2.6 g/dL (2.4-3.5); Glucose 113 mg/dL (83-110); Hemoglobin 11.6 g/dL (14.0-18.0); Hypochromia SLIGHT = 6-15 cells (100X) (0-5/hpf); MDiff Complete? YES; Mean Corpuscular HGB CONC 31.4 g/dL (32.0-36.0); Mean Corpuscular Hemoglobin 29.5 pg (27.0-31.0); Mean Corpuscular Volume 93.9 fL (78.0-98.0); Mean Platelet Volume 7.8 fL (7.4-10.4); Monocytes 3 % (0-10); Neutrophil 93 % (42-75); Platelet Count 284 thou/uL (130-400); Platelet Morphology Comment Appears Adequate; Protein, Total 4.8 g/dL (5.8-8.1); RBC Distribution Width 13.1 % (11.5-14.5); Red Blood Cell (RBC) Count 3.94 mill/uL (4.70-6.10); Sodium 138 mmol/L (136-145); White Blood Cell (WBC) Count 25.6 thou/uL (4.8-10.8)
[2019-07-03] MEDS: Carvedilol 3.125 MG TAB PO SCH ×2 (06:17→20:36)
--- NOTE | 2019-07-03 07:24 | PDOC.FM ---
- Subjective Subjective: Pt is unchanged from yesterday. He remains with mild abdomen pain. He will go for procedure today. He has no fevers, chills. - Objective Vital Signs & Weight: Vital Signs (12 hours) Temp Pulse Resp BP Pulse Ox 07/03/19 05:41 98.2 F 96 18 139/84 98 07/03/19 01:00 98.9 F 83 16 135/74 96 07/02/19 20:00 98.4 F 105 H 16 117/62 100 Weight Weight 99.79 kg I&O: 07/02/19 07/03/19 07/04/19 06:59 06:59 06:59 Intake Total 1450 Output Total 680 850 Balance -680 600 Result Diagrams: 07/03/19 05:25 07/03/19 05:25 Phys Exam - Physical Examination Constitutional: NAD HEENT: PERRLA, moist MMs Neck: no nodes, no JVD Respiratory: no wheezing, clear to auscultation bilateral Cardiovascular: RRR, no significant murmur Gastrointestinal: soft, positive bowel sounds mild distention Neurological: non-focal, normal sensation Psychiatric: normal affect, A&O x 3 Skin: no rash Dx/Plan (1) Cholecystitis with perforation of gallbladder Code(s): K82.A2 - PERFORATION OF GALLBLADDER IN CHOLECYSTITIS Status: Acute (2) A-fib Code(s): I48.91 - UNSPECIFIED ATRIAL FIBRILLATION Status: Acute (3) Anxiety Code(s): F41.9 - ANXIETY DISORDER, UNSPECIFIED Status: Acute (4) CAD (coronary artery disease) Code(s): I25.10 - ATHSCL HEART DISEASE OF [place] CORONARY ARTERY W/O ANG PCTRS Status: Acute (5) CHF (congestive heart failure) Code(s): I50.9 - HEART FAILURE, UNSPECIFIED Status: Acute (6) Depression Code(s): F32.9 - MAJOR DEPRESSIVE DISORDER, SINGLE EPISODE, UNSPECIFIED Status : Acute (7) Diabetes Code(s): E11.9 - TYPE 2 DIABETES MELLITUS WITHOUT COMPLICATIONS Status: Acute (8) HLD (hyperlipidemia) Code(s): E78.5 - HYPERLIPIDEMIA, UNSPECIFIED Status: Acute (9) HTN (hypertension) Code(s): I10 - ESSENTIAL (PRIMARY) HYPERTENSION Status: Acute (10) Hypothyroidism Code(s): E03.9 - HYPOTHYROIDISM, UNSPECIFIED Status: Acute (11) AYDEN (obstructive sleep apnea) Code(s): G47.33 - OBSTRUCTIVE SLEEP APNEA (ADULT) (PEDIATRIC) Status: Acute - Plan Plan: Patient is an 88 y/o male who presents to the ED for evaluation of RUQ discomfort. 1. Sub-Acute Cholecystits Complicated by Perforation, Abscess Formation -Patient admits only to mild discomfort in RUQ -s/p 2L NS and K-Centra in ED -Started on Vancomycin and Zosyn in ED - will continue Zosyn, per GenSurg - WBC elevation -RUQ US: Gallbladder sludge w/ cystic mass -CXR: Mild CHF -CT ABD/Pelvis: Large gallbladder fossa multiloculated cyst, likely 2/2 to perforation, abscess -GenSurg: Consulted and aware - recs appreciated -Radiology: Consulted - will plan for CT-guided abscess drainage in AM # CHF -Will continue home medication regimen and avoid fluid overload # A-Fib, Rate-Controlled -s/p Kcentra in ED - will continue to hold Warfarin and DVT PPx -PT: 30.4 / INR: 2.9 / aPTT: 40.3 -Patient is currently rate-controlled - will continue home medication regimen - Discuss need for warfarin with pt/family as they do not want aggressive treatment for cholecystitis w/ perforation/abscess. Will discuss risks vs benefits. # DM2 -Glucose: 156 (07/01) -No documented HgA1c - will not repeat for risk stratification -Continue home medication regimen -ACHS accuchecks -Mild SSI -Hypoglycemia Protocol # HLD -Will continue home medication regimen # HTN -BP currently at goal -Will continue home medication regimen # AYDEN -Patient states that he had used a CPAP machine several years prior but thought that "it didn't help much" -Will consider RT consult for CPAP if patient demonstrates severe sleep disruption # Anxiety -Patient does not endorse significant symptoms at this time -Continue home medication regimen # Depression -Patient does not endorse significant symptoms at this time -Continue home medication regimen PCP: Gloria Code: DNAR Diet: NPO Activity: Ambulate w/ Assist VTE PPx: None - See Coag Panel Above Dispo: pending procedure and improvement of Wbc with antibiotics Addendum - Attending - Attending Attestation Date/Time: 07/03/19 1119 I personally evaluated the patient and discussed the management with Dr. Diamond. I agree with the History, Examination, Assessment and Plan documented above with any addition or exceptions noted below. Patient here for gallbladder pathology and suspected abscess. Going for IR drainage today. Continue IV abx, await further Surgery recs. Needs discussion with family about terminologist goals of care, especially if IR guided drainage does not eliminate all the fluid collection.
[2019-07-03] MEDS ORDERED: Prevnar 13-Val Conj/PF 0.5 ML SYRINGE IM ONE (09:00)
[2019-07-03] MEDS ORDERED: Midazolam HCl 2 mg/2 ml Vial ONE (09:11)
[2019-07-03] MEDS ORDERED: Fentanyl 100 MCG/2 ML VIAL ONE (09:11)
[2019-07-03] MEDS ORDERED: Sodium Bicarbonate 2.5 MEQ/5 ML VIAL ONE (09:11)
[2019-07-03 12:24] LABS: Body Fluid Source Abscess Fluid
[2019-07-03 12:25] LABS: BF Color Brown; Clarity Cloudy/Turbid (Clear); Tube # EDTA
[2019-07-03] MEDS: Pantoprazole 40 MG VIAL IVP SCH (12:41)
[2019-07-03] MEDS: Finasteride 5 MG TAB PO SCH (12:42)
[2019-07-03] MEDS: FLUoxetine HCl 20 MG CAP PO SCH (12:42)
[2019-07-03] MEDS: Aspirin 81 mg Enteric Coated Tablet PO SCH (12:42)
[2019-07-03] MEDS: Polyethylene Glycol 3350 17 GM Packet PO SCH (12:43)
--- NOTE | 2019-07-03 13:59 | CON ---
DATE OF CONSULTATION: 07/03/2019 REASON FOR CONSULTATION: Heart failure. HISTORY OF PRESENT ILLNESS: Mr. Montoya is a very pleasant, 88-year-old white gentleman, who comes to the hospital for abdominal pain. He was diagnosed with an abscess around his gallbladder from a ruptured cholecystitis. Because of his DNR status, he was up to do conservative management with a transcutaneous drain and antibiotics. Cardiology has been consulted as he has a history of chronic atrial fibrillation on chronic Coumadin therapy and has reduced EF at about 30%. He follows with Dr. Daley apparently from what he could tell me. Currently, he denies any chest pain, tightness, or pressure. His breathing is at baseline. PAST MEDICAL HISTORY: 1. History of systolic dysfunction. 2. Coronary artery disease. 3. Depression. 4. Anxiety. 5. Type 2 diabetes. 6. Hyperlipidemia. 7. Hypertension. 8. Obstructive sleep apnea, using CPAP. 9. Hypothyroidism. 10. Chronic atrial fibrillation. 11. Chronic dermatitis due to solar radiation. 12. Actinic keratoses. PAST SURGICAL HISTORY: 1. Pacemaker placement. 2. History of stenting in the past, unclear with details. He can not provide much details. 3. Right lower lobe lung resection. 4. Umbilical hernia repair. SOCIAL HISTORY: No alcohol, tobacco, or drug use. ALLERGIES: NO KNOWN DRUG ALLERGIES. OUTPATIENT MEDICATIONS: 1. Trazodone. 2. Aspirin. 3. Amoxicillin. 4. Simethicone. 5. Magnesium hydroxide. 6. Guaifenesin. 7. Loperamide. 8. Glucagon. 9. Clonidine 0.1 p.r.n. 10. Tums. 11. Benzocaine-menthol lozenges. 12. [place] p.r.n. 13. MiraLAX. 14. Protonix. 15. Metformin. 16. Magnesium oxide. 17. Multivitamin daily. 18. Levaquin. 19. Insulin Levemir. 20. Furosemide. 21. Finasteride. 22. Prozac. 23. Coreg. 24. Atorvastatin. FAMILY HISTORY: Noncontributory. REVIEW OF SYSTEMS: A 12-point review of systems was done and was all negative unless stated in History of Present Illness. PHYSICAL EXAMINATION: VITAL SIGNS: Temperature 98.5, pulse 81, respiratory rate 20, saturating 100% on room air, and blood pressure 125/75. GENERAL: Awake, alert, oriented to person, place, and time, in no distress. HEENT: Normocephalic, atraumatic. NECK: Supple. LUNGS: Clear. CARDIOVASCULAR: S1, S2. No S3 or S4. Irregularly irregular. Heart rate in the 70s. ABDOMEN: Soft. Positive bowel sounds. Drain coming out, draining greenish fluid. EXTREMITIES: No edema. SKIN: Warm and dry. LABORATORY DATA: Laboratory work was reviewed. CBC with a white count of 28 down to 25, hemoglobin of 13 down to 11, and platelet count of 284. INR down to 1.4 from 2.9. Chemistries were better today, normal BUN and creatinine. GFR of 71. AST, ALT, and alkaline phosphatase were elevated. UA was unremarkable. ASSESSMENT: 1. Chronic systolic dysfunction. Last ejection fraction evaluation here was in 2018 at 30% to 40%. We will repeat echo. 2. Chronic atrial fibrillation. 3. Presence of a permanent pacemaker. Looking at chest x-ray looks like it is a biventricular pacemaker, not an automatic implantable cardioverter-defibrillator, just a pacemaker, but is biventricular third left ventricular lead. 4. Hepatic abscess secondary to ruptured cholecystitis. PLAN: 1. Echocardiogram to be done. 2. Continue current management of infectious process per Surgery and primary team. 3. CV seems to be stable at this time. Thank you for letting us to participate in the care of your patient. We will follow. Job ID: [id number]
[2019-07-03 14:37] VITALS: BMI 31.2
--- NOTE | 2019-07-03 15:09 | PRG ---
DATE OF SERVICE: 07/03/2019 SUBJECTIVE: Kamilah Montoya is doing well today. This morning, Dr. Joe Bal performed a CT-guided drainage of the right upper quadrant subhepatic abscess. Mostly, bile drainage was obtained. It was cloudy, purulent in appearance. The patient has surrounding collections that may need to be addressed later. Cultures of course pending from today's drainage. The patient denies any problems or any new complaints. He states he feels better. Ultrasound of the area prior to the CT-guided drainage today revealed gallbladder sludge and severe inflammatory changes. Dr. Owusu saw him in consultation. He noted his past history of chronic atrial fibrillation, on chronic Coumadin therapy, and reduced EF of 30%. Apparently, his coupon redemption clerk is Dr. Daley. He has history of diastolic dysfunction, coronary artery disease, sleep apnea, chronic atrial fibrillation, pacemaker status. Echocardiogram is pending. [place] he is stable from a CV standpoint at this time. OBJECTIVE: VITAL SIGNS: Temperature 98.5 degrees, pulse 81, blood pressure 125/75. LUNGS: Clear to auscultation. CARDIAC: Regular rate and rhythm without murmur or gallop. ABDOMEN: Soft, mild tenderness in the right upper quadrant where the drain was placed. LABORATORY DATA: [place] [address] [place] [id number]. Differential unremarkable. Sodium 138, potassium 4.0, BUN 22, creatinine 1, glucose 113. Laboratories this morning reveal his bilirubin is normal. AST and ALT are 51 and 61, respectively. Alkaline phosphatase 162, about the same as yesterday. ASSESSMENT AND PLAN: Probably cholecystitis with perforation, chronic. He has severe inflammatory changes by CAT scan. He is felt to be at increased risk because of these inflammatory changes and also because of his multiple medical problems. He is DNR status. I have had a long discussion with the patient's son, who understands these issues. The son requests that he be able to see is that as he feels he can communicate with him [id number] better than on the phone and I will ask nursing to arrange this in the pandemic situation. Currently, continue antibiotics and CT-guided drainage procedure. Await Infectious Diseases input. Repeat CAT scan mid week. Continue to hold anticoagulation at this time. Job ID: [id number]
[2019-07-03] MEDS: traMADol HCl 50 MG TAB PO PRN (15:44)
[2019-07-03] MEDS: Acetaminophen 500 MG TAB PO SCH ×2 (15:45→20:37)
[2019-07-03] MEDS: Atorvastatin Calcium 10 MG TAB PO SCH (20:37)
--- NOTE | 2019-07-03 23:44 | CON ---
DATE OF CONSULTATION: 07/03/2019 REASON FOR CONSULTATION: Ruptured cholecystitis, intraabdominal abscess. HISTORY OF PRESENT ILLNESS: An 88-year-old with history of cardiomyopathy with pacemaker defibrillator, type 2 diabetes, hyperlipidemia, and hypertension, who developed soreness in the right upper quadrant of his abdomen, general malaise, recurrent falls, and injured his left forehead, skin site with an area of subgaleal hematoma. His white cell count was found elevated. He was admitted, and CT of abdomen showed an intraabdominal abscess in right upper quadrant associated with ruptured cholecystitis. On arrival, his blood pressure was 109/72, respiratory rate 18, temperature 98, and O2 saturation 96%. He did not appear in distress and the exam showed some tenderness, which was generalized with distention. Other findings; white cell count 28,000, hemoglobin 13, platelets 310, and creatinine 1.23. Sodium 139. Transaminases are little high at 48 and 70. Bilirubin normal. Alkaline phosphatase 193. Albumin 2.5. Urinalysis; 4 to 6 wbc's, 30 protein. Currently , Mr. Montoya is after a percutaneous drainage by Radiology, somewhat apathetic, but he does answer questions. He knows where he is. Has a little bit of headache. No visual symptoms, sore throat, odynophagia, or dysphagia. He is able to swallow without difficulty according to nurse. No dyspnea or chest pain. No cough or sputum production. Moderate abdominal pain, which is generalized. Able to void without difficulty. He is able to move extremities, but he is not ambulatory anymore. PAST MEDICAL HISTORY: Type 2 diabetes; hypertension; cardiomyopathy with AICD; had some lung infection, which was resected reportedly in the past; and hyperlipidemia. SOCIAL HISTORY: Living in a custodial. Never smoker. ALLERGIES: NONE. FAMILY HISTORY: Noncontributory. CURRENT MEDICATIONS: 1. Ecotrin. 2. Lipitor. 3. Coreg. 4. Catapres. 5. Proscar. 6. Prozac. 7. Lasix. 8. Insulin. 9. Zofran. 10. Protonix. 11. Zosyn. PHYSICAL EXAMINATION: VITAL SIGNS: T-max 98.9, blood pressure 125/75, pulse 81, respirations 20, and O2 saturation 100%. GENERAL: Somewhat apathetic. HEENT: Ocular movements conjugate. Oral cavity moist. Still few teeth in place. NECK: Supple. No jugular vein distention. LUNGS: Symmetric air entry. Few crackles in the right side at the base. HEART: S1, S2. Regular rate. AICD pocket site normal appearing. No shoulder tenderness. No sternoclavicular joint tenderness. ABDOMEN: Moderately distended with [id number] tenderness on percussion and palpation, which is distributed in all four quadrants with some rebound tenderness. : No bladder distention. EXTREMITIES: Osteoarthrosis, knees and ankles. Pulses 1+ in dorsalis pedis. Trace edema. He is able to move his toes, but he has a hard time in lifting his legs from the bed. NEUROLOGIC: He is awake, knows his name, and knows the hospital name and the date. LABORATORY DATA: The latest white cell count is 25.6, hemoglobin 11, platelets 284, and 92% neutrophils. Creatinine 1.0, which is an improvement. Alkaline phosphatase down to 162. Microbiology; we have polymicrobial ja from the Gram stain and cultures are pending. The abdomen and pelvis CT from yesterday with multiloculated abscess in the gallbladder fossa, subcapsular hepatic abscess associated with the above. No other abnormalities noted. The abscess drainage procedure has been dictated and the patient had 65 mL obtained after the puncture of the area. A catheter was left for drainage. 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 Polymicrobial ja is expected, gram negative rods, streptococci including strep anginosus/milleri and so on. Resistant pathogens are possible and we will continue Zosyn for now. MRSA does not seem likely and depending on the results of final cultures, may be able to transition to oral, but I am inclined to continue IV therapy because of the extensiveness of the process in view of the decreased penetration of antimicrobials in those sites as well as adverse reactions when they are taking via gastrointestinal tract. In that case, he might require PICC line placement. Job ID: [id number] [facility]
[2019-07-04] MEDS: Acetaminophen 500 MG TAB PO SCH ×4 (03:59→20:27)
[2019-07-04] MEDS: Piperacillin/Tazobactam 4.5 GM in Sodium Chloride 0.9% 100 ML IVPB SCH ×3 (05:30→18:06)
[2019-07-04] MEDS: Furosemide 40 MG TAB PO SCH ×2 (05:35→14:10)
[2019-07-04] MEDS: HumaLOG 300 UNITS/3 ML VIAL SC PRN ×4 (05:37→20:45)
--- NOTE | 2019-07-04 07:32 | PDOC.FM ---
- Subjective Subjective: Pt is doing better today in regards to abdominal discomfort. He remains with some tenderness. He has had difficulty urinating since admission but did have a wet diaper at 0600. - Objective Vital Signs & Weight: Vital Signs (12 hours) Temp Pulse Resp BP Pulse Ox 07/04/19 05:00 105 H 18 134/72 100 07/03/19 20:06 99 07/03/19 19:53 98.0 F 95 20 126/86 99 Weight Admit Weight 99.79 kg Weight 101.605 kg I&O: 07/03/19 07/04/19 07/05/19 06:59 06:59 06:59 Intake Total 3130 Output Total 680 2830 Balance -680 300 Result Diagrams: 07/04/19 07:34 07/03/19 05:25 Phys Exam - Physical Examination Constitutional: NAD Neck: no JVD, full ROM Respiratory: no wheezing, clear to auscultation bilateral Cardiovascular: RRR, no significant murmur Gastrointestinal: soft, positive bowel sounds tender to mid-deep palpation Musculoskeletal: no edema, pulses present Neurological: non-focal, normal sensation Psychiatric: normal affect, A&O x 3 Skin: no rash, cap refill <2 seconds Dx/Plan (1) Cholecystitis with perforation of gallbladder Code(s): K82.A2 - PERFORATION OF GALLBLADDER IN CHOLECYSTITIS Status: Acute (2) A-fib Code(s): I48.91 - UNSPECIFIED ATRIAL FIBRILLATION Status: Acute (3) Anxiety Code(s): F41.9 - ANXIETY DISORDER, UNSPECIFIED Status: Acute (4) CAD (coronary artery disease) Code(s): I25.10 - ATHSCL HEART DISEASE OF [place] CORONARY ARTERY W/O ANG PCTRS Status: Acute (5) CHF (congestive heart failure) Code(s): I50.9 - HEART FAILURE, UNSPECIFIED Status: Acute (6) Depression Code(s): F32.9 - MAJOR DEPRESSIVE DISORDER, SINGLE EPISODE, UNSPECIFIED Status : Acute (7) Diabetes Code(s): E11.9 - TYPE 2 DIABETES MELLITUS WITHOUT COMPLICATIONS Status: Acute (8) HLD (hyperlipidemia) Code(s): E78.5 - HYPERLIPIDEMIA, UNSPECIFIED Status: Acute (9) HTN (hypertension) Code(s): I10 - ESSENTIAL (PRIMARY) HYPERTENSION Status: Acute (10) Hypothyroidism Code(s): E03.9 - HYPOTHYROIDISM, UNSPECIFIED Status: Acute (11) AYDEN (obstructive sleep apnea) Code(s): G47.33 - OBSTRUCTIVE SLEEP APNEA (ADULT) (PEDIATRIC) Status: Acute - Plan Plan: Patient is an 88 y/o male who presents to the ED for evaluation of RUQ discomfort. 1. Sub-Acute Cholecystits Complicated by Perforation, Abscess Formation -RUQ US: Gallbladder sludge w/ cystic mass -CXR: Mild CHF -CT ABD/Pelvis: Large gallbladder fossa multiloculated cyst, likely 2/2 to perforation, abscess -GenSurg: Consulted - recs appreciated -Radiology: Consulted - CT-guided abscess drainage on 07/02 - ID: Consulted - appreciate rec's. Continue zosyn pending culture results, need to consider PICC # CHF - Will continue home medication regimen and avoid fluid overload - Cards consulted, appreciate rec's. Pending echo # A-Fib, Rate-Controlled - Will continue to hold Warfarin and DVT PPx per surgery recommendations. - PT: 30.4 / INR: 2.9 / aPTT: 40.3 - Patient is currently rate-controlled - will continue home medication regimen - Will need to discuss warfarin with pt/family as they do not want aggressive treatment for cholecystitis w/ perforation/abscess. Need to discuss risks vs benefits. Do on discharge. # Urinary retention s/p in and out cath. Continue to monitor. # DM2 -Glucose: 156 (07/01) -Continue home medication regimen -ACHS accuchecks -Mild SSI -Hypoglycemia Protocol # HLD -Will continue home medication regimen # HTN -BP currently at goal -Will continue home medication regimen # AYDEN -Patient states that he had used a CPAP machine several years prior but thought that "it didn't help much" -Will consider RT consult for CPAP if patient demonstrates severe sleep disruption # Anxiety -Patient does not endorse significant symptoms at this time -Continue home medication regimen # Depression -Patient does not endorse significant symptoms at this time -Continue home medication regimen PCP: Gloria Code: DNAR Diet: clears, advance as tolerated Activity: Ambulate w/ Assist VTE PPx: None - See Coag Panel Above Dispo: continue care with IV antiobiotics, pending culture results Addendum - Attending - Attending Attestation Date/Time: 05/03/20 1212 I personally evaluated the patient and discussed the management with Dr. Diamond. I agree with the History, Examination, Assessment and Plan documented above with any addition or exceptions noted below. Patient overall stable. Continue abx and IR guided drainage of his gallbladder and liver infection/abscess. Surgery on board. Patient continues to be DNR and no plans for more aggressive treatment at this time.
[2019-07-04] MEDS: Aspirin 81 mg Enteric Coated Tablet PO SCH (08:17)
[2019-07-04 08:18] LABS: Hemoglobin 11.9 g/dL (14.0-18.0); Mean Corpuscular HGB CONC 32.3 g/dL (32.0-36.0); Mean Corpuscular Hemoglobin 30.4 pg (27.0-31.0); Mean Platelet Volume 7.5 fL (7.4-10.4); Platelet Count 309 thou/uL (130-400); RBC Distribution Width 13.3 % (11.5-14.5); Red Blood Cell (RBC) Count 3.93 mill/uL (4.70-6.10); White Blood Cell (WBC) Count 19.2 thou/uL (4.8-10.8)
[2019-07-04] MEDS: FLUoxetine HCl 20 MG CAP PO SCH (08:18)
[2019-07-04] MEDS: Finasteride 5 MG TAB PO SCH (08:18)
[2019-07-04] MEDS: Carvedilol 3.125 MG TAB PO SCH ×2 (08:18→20:27)
[2019-07-04] MEDS: Polyethylene Glycol 3350 17 GM Packet PO SCH (08:19)
[2019-07-04] MEDS: Pantoprazole 40 MG VIAL IVP SCH (08:19)
[2019-07-04] MEDS: traMADol HCl 50 MG TAB PO PRN ×3 (08:21→22:30)
--- NOTE | 2019-07-04 11:04 | PDOC.CPN ---
- Subjective Date: 07/04/19 Time: 11:01 Interval history: No angina, no SOB. Abdominal issues remain. - Review of Systems General: denies: fever/chills, weight/appetite/sleep changes, night sweats, fatigue Respiratory: denies: cough, congestion, shortness of breath, exercise intolerance Cardiovascular: denies: chest pain, palpitation, edema, paroxysmal nocturnal dyspnea, orthopnea Gastrointestinal: reports: abd pain. denies: nausea, vomiting, diarrhea, constipation, GI bleeding Musculoskeletal: denies: pain, tenderness, stiffness, swelling, arthritis/ arthralgias Neurological: denies: numbness, syncope, seizure, weakness - Objective Allergies/Adverse Reactions: Allergies Allergy/AdvReac Type Severity Reaction Status Date / Time No Known Allergies Allergy Verified 07/02/19 22:48 Visit Medications: Current Medications Acetaminophen (Tylenol) 1,000 mg PO Q6H [facility] Last Admin: 07/04/19 08:20 Dose: Not Given Aspirin (Ecotrin) 81 mg PO DAILY [facility] Last Admin: 07/04/19 08:17 Dose: 81 mg Atorvastatin Calcium (Lipitor) 10 mg PO HS [facility] Last Admin: 07/03/19 20:37 Dose: 10 mg Carvedilol (Coreg) 6.25 mg PO BID [facility] Last Admin: 07/04/19 08:18 Dose: 6.25 mg Clonidine (Catapres) 0.1 mg PO Q6H PRN PRN Reason: Blood Pressure Dextrose/Water (Dextrose 50%) 25 gm SLOW IVP PRN PRN PRN Reason: Hypoglycemia Finasteride (Proscar) 5 mg PO DAILY [facility] Last Admin: 07/04/19 08:18 Dose: 5 mg Fluoxetine HCl (Prozac) 20 mg PO DAILY [facility] Last Admin: 07/04/19 08:18 Dose: 20 mg Furosemide (Lasix) 40 mg PO 0600,1400 [facility] Last Admin: 07/04/19 05:35 Dose: 40 mg Glucagon (Glucagon) 1 mg IM PRN PRN PRN Reason: Hypoglycemia Piperacillin Sod/Tazobactam (Sod 4.5 gm/ Sodium Chloride) 100 mls @ 200 mls/hr IVPB Q6HR [facility] Last Admin: 07/04/19 05:30 Dose: 100 mls Dextrose/Water (D5w) 1,000 mls @ 0 mls/hr IV .Q0M PRN PRN Reason: Hypoglycemia Insulin Human Lispro (Humalog) 0 units SC .MILD SLIDING SCALE PRN PRN Reason: Mild Correctional Scale Last Admin: 07/04/19 05:37 Dose: 3 unit Ondansetron HCl (Zofran Odt) 4 mg PO Q6H PRN PRN Reason: Nausea/Vomiting Pantoprazole Sodium (Protonix) 40 mg IVP DAILY [facility] Last Admin: 07/04/19 08:19 Dose: 40 mg Polyethylene Glycol (Miralax) 17 gm PO DAILYPRN PRN PRN Reason: Constipation Polyethylene Glycol (Miralax) 17 gm PO DAILY [facility] Last Admin: 07/04/19 08:19 Dose: 17 gm Simethicone (Mylicon Chewable) 80 mg PO TIDPRN PRN PRN Reason: Gas Pain Tramadol HCl (Ultram) 50 mg PO Q6H PRN PRN Reason: Moderate to Severe Pain (6-10) Last Admin: 07/04/19 08:21 Dose: 50 mg Vital Signs & Weight: Vital Signs Temp Pulse Resp BP Pulse Ox 07/04/19 08:00 98.0 F 100 18 119/71 99 07/04/19 05:00 105 H 18 134/72 100 Admit Weight 220 lb Weight 224 lb - Physical Exam General: alert & oriented x3 HEENT: mucus membranes moist Neck: supple neck Cardiac: irregularly regular Lungs: normal breath sounds Neuro: grossly intact Abdomen: active bowel sounds, tender Extremities: no edema Skin: clear Musculoskeletal: no pain - Labs Result Diagrams: 07/04/19 07:34 07/03/19 05:25 - Assessment/Plan Assessment/Plan: 1. Ruptured cholecystitis, abdominal abscess. 2. Chronic systolic heart failure. 3. Chronic afib rate controlled. 4. Presence of a PPM. PLAN: - Echo pending. - Seems euvolemic at this time. - Judicious use of fluids - Continue current PO dose of lasix and Coreg.
--- NOTE | 2019-07-04 11:26 | PRG ---
DATE OF SERVICE: 07/04/2019 SUBJECTIVE: Kamilah Montoya is doing well today. He states he feels better with less pain. Apparently, the patient's son visited him yesterday to discuss the course of action. Dr. Owusu has seen him and he is stable from a cardiac standpoint. The patient is on chronic anticoagulation, this has been held for now in case he needs future percutaneous drainage of another abscess. We will plan to repeat his CAT scan of the abdomen and pelvis on Friday. OBJECTIVE: VITAL SIGNS: 98 degrees, 100, 119/71. HEAD, EARS, EYES, NOSE, AND THROAT: Unremarkable. LUNGS: Clear to auscultation. CARDIAC: Regular rate and rhythm without murmur or gallop. ABDOMEN: Soft, less tenderness in right upper quadrant. Drain is dark bilious. Cultures revealed E coli, Enterococcus, and Streptococcus. Dr. Can is seeing him and planning probably PICC line and long-term intravenous antibiotics for nonsurgical treatment of this problem. I will be following the patient in the office for this problem. He will possibly be discharged later in the week after repeat CAT scan. Currently, he is on Zosyn. ASSESSMENT: Probably perforated neglected cholecystitis with extensive inflammatory changes, and abscess, subhepatic and subcapsular, right liver lobe. PLAN: He has undergone percutaneous drainage, CT guided, drain placed probably in the gallbladder. The remainder of the abscess is difficult to drain percutaneously due to diaphragm thorax issues, but we will repeat his CAT scan on Friday or Friday of this week and plan percutaneous drainage if appropriate. After that, the patient could be discharged home to facility for continued intravenous antibiotics and outpatient followup in my office after the repeat CAT scan, hopefully we can resume his anticoagulation. Job ID: [id number]
[2019-07-04 12:09] LABS: Lymphocytes 6 % (21-51); MDiff Complete? YES; Monocytes 7 % (0-10); Neutrophil 87 % (42-75); Platelet Morphology Comment Appears Adequate
[2019-07-04] MEDS: Atorvastatin Calcium 10 MG TAB PO SCH (20:27)
[2019-07-04] MEDS ORDERED: hydrOXYzine Pamoate 25 mg Capsule PO SCH (20:45)
[2019-07-04] MEDS: Simethicone Chewable 80 MG TAB PO PRN (22:27)
[2019-07-05] MEDS: Piperacillin/Tazobactam 4.5 GM in Sodium Chloride 0.9% 100 ML IVPB SCH ×4 (00:11→17:05)
[2019-07-05] MEDS: Acetaminophen 500 MG TAB PO SCH ×4 (03:31→22:09)
[2019-07-05] MEDS: Furosemide 40 MG TAB PO SCH ×2 (05:40→14:59)
--- NOTE | 2019-07-05 05:40 | PDOC.FM ---
- Subjective Subjective: States he is feeling better this morning than yesterday. Complains of mild abdominal discomfort. - Objective MAR Reviewed: Yes Vital Signs & Weight: Vital Signs (12 hours) Temp Pulse Resp BP Pulse Ox 07/04/19 20:00 98.4 F 104 H 18 135/83 99 Weight Admit Weight 99.79 kg Weight 101.605 kg I&O: 07/03/19 07/04/19 07/05/19 06:59 06:59 06:59 Intake Total 3130 Output Total 680 2830 40 Balance -680 300 -40 Result Diagrams: 07/05/19 05:19 07/03/19 05:25 Phys Exam - Physical Examination Constitutional: NAD HEENT: PERRLA, moist MMs Neck: supple, full ROM Respiratory: no wheezing, no rales, no rhonchi, clear to auscultation bilateral Cardiovascular: no significant murmur, no rub Irregularly irregular heart beat. Gastrointestinal: soft, non-tender, positive bowel sounds Perc drain draining green fluid. Bandage clean and dry. Musculoskeletal: no edema, pulses present Neurological: non-focal, moves all 4 limbs Psychiatric: normal affect, A&O x 3 Skin: no rash, normal turgor Dx/Plan (1) A-fib Code(s): I48.91 - UNSPECIFIED ATRIAL FIBRILLATION Status: Acute (2) Anxiety Code(s): F41.9 - ANXIETY DISORDER, UNSPECIFIED Status: Acute (3) CAD (coronary artery disease) Code(s): I25.10 - ATHSCL HEART DISEASE OF [place] CORONARY ARTERY W/O ANG PCTRS Status: Acute (4) CHF (congestive heart failure) Code(s): I50.9 - HEART FAILURE, UNSPECIFIED Status: Acute (5) Cholecystitis with perforation of gallbladder Code(s): K82.A2 - PERFORATION OF GALLBLADDER IN CHOLECYSTITIS Status: Acute (6) Depression Code(s): F32.9 - MAJOR DEPRESSIVE DISORDER, SINGLE EPISODE, UNSPECIFIED Status : Acute (7) Diabetes Code(s): E11.9 - TYPE 2 DIABETES MELLITUS WITHOUT COMPLICATIONS Status: Acute (8) HLD (hyperlipidemia) Code(s): E78.5 - HYPERLIPIDEMIA, UNSPECIFIED Status: Acute (9) HTN (hypertension) Code(s): I10 - ESSENTIAL (PRIMARY) HYPERTENSION Status: Acute (10) Hypothyroidism Code(s): E03.9 - HYPOTHYROIDISM, UNSPECIFIED Status: Acute (11) AYDEN (obstructive sleep apnea) Code(s): G47.33 - OBSTRUCTIVE SLEEP APNEA (ADULT) (PEDIATRIC) Status: Acute - Plan Plan: Gallbladder Perforation, Abscess Formation. S/p -CT ABD/Pelvis: Large gallbladder fossa multiloculated cyst, likely 2/2 to perforation, abscess -GenSurg: Consulted - recs appreciated -Radiology: Consulted - CT-guided abscess drainage on 07/02 - ID: Consulted - appreciate rec's. Culture resulted: E. [place], enterococcus, and alpha hemolytic strep. - Kathleen sensitive. Will await ID recommendations. - Plan for repeat CT abdomen 07/05 or 07/06. CHF - Will continue home medication regimen and avoid fluid overload - Cards consulted, appreciate rec's. - ECHO EF 40-45%, atrial fibrillation. A-Fib, Rate-Controlled - Will continue to hold Warfarin and DVT PPx per surgery recommendations. - Patient is currently rate-controlled - will continue home medication regimen - Will need to discuss warfarin with pt/family as they do not want aggressive treatment for cholecystitis w/ perforation/abscess. Need to discuss risks vs benefits. Will discuss on on discharge. Urinary retention s/p in and out cath. Continue to monitor. DM2 -Continue home medication regimen -ACHS accuchecks -Mild SSI -Hypoglycemia Protocol HLD -Will continue home medication regimen HTN -BP currently at goal -Will continue home medication regimen AYDEN -Patient states that he had used a CPAP machine several years prior but thought that "it didn't help much" -Will consider RT consult for CPAP if patient demonstrates severe sleep disruption Anxiety/Depression -Patient does not endorse significant symptoms at this time -Continue home medication regimen PCP: Gloria Code: DNAR Diet: clears, advance as tolerated Activity: Ambulate w/ Assist VTE PPx: None Addendum - Attending - Attending Attestation Date/Time: 07/05/19 [id number] I personally evaluated the patient and discussed the management with Dr. Tellez I agree with the History, Examination, Assessment and Plan documented above with any addition or exceptions noted below - Patient without complaints. Afebrile VSS. A/P: 1) Gallbladder and subhepatic abscess - continue IV antibtiotics. Plan for repeat CT on Friday. 2) DM- monitor BG and will adjust insulin. 2) Ischmic cardiomyopathy stable.
[2019-07-05] MEDS: HumaLOG 300 UNITS/3 ML VIAL SC PRN ×4 (05:46→22:08)
[2019-07-05 06:19] LABS: Hypochromia SLIGHT = 6-15 cells (100X) (0-5/hpf); MDiff Complete? YES; Mean Corpuscular HGB CONC 32.3 g/dL (32.0-36.0); Mean Corpuscular Hemoglobin 30.2 pg (27.0-31.0); Mean Corpuscular Volume 93.4 fL (78.0-98.0); Mean Platelet Volume 7.6 fL (7.4-10.4); Monocytes 3 % (0-10); Neutrophil 97 % (42-75); Platelet Count 308 thou/uL (130-400); Platelet Morphology Comment Appears Adequate; Red Blood Cell (RBC) Count 3.63 mill/uL (4.70-6.10); White Blood Cell (WBC) Count 17.7 thou/uL (4.8-10.8)
[2019-07-05] MEDS: Carvedilol 3.125 MG TAB PO SCH ×2 (08:25→22:09)
[2019-07-05] MEDS: Polyethylene Glycol 3350 17 GM Packet PO SCH (08:25)
[2019-07-05] MEDS: Finasteride 5 MG TAB PO SCH (08:25)
[2019-07-05] MEDS: Aspirin 81 mg Enteric Coated Tablet PO SCH (08:25)
[2019-07-05] MEDS: Pantoprazole 40 MG VIAL IVP SCH ×2 (08:26→10:34)
[2019-07-05] MEDS: FLUoxetine HCl 20 MG CAP PO SCH (08:26)
--- NOTE | 2019-07-05 10:13 | PRG ---
DATE OF SERVICE: 07/05/2019 SUBJECTIVE: Kamilah Montoya is doing well today. He states he feels somewhat better. He states he is able to eat better since his percutaneous drainage. Temperature 97.5 degrees, heart rate 95, blood pressure 127/78. Cultures as noted previously, E coli, Enterococcus, alpha Strep. Dr. Can is seeing him. OBJECTIVE: LUNGS: Clear to auscultation. No wheezing. CARDIAC: Regular rate and rhythm without murmur or gallop. ABDOMEN: Soft, obese. Mild tenderness, but no guarding in right upper quadrant. Drain, purulent bilious material draining out the drain, 65 mL in last 24 hours. ASSESSMENT AND PLAN: Probable perforated cholecystitis without stones. There is sludge seen in most recent ultrasound, but this maybe result of cholestasis. There are severe inflammatory changes in right subhepatic space and subcapsular right lobe of liver. Plan is to keep him off his anticoagulation, repeat his CAT scan abdomen with plans to drain the peritoneal abscess on Friday. Dr. Can is seeing him regarding consideration for PICC line and infusion of antibiotic therapy. Discharge planning for care facility or jail versus rehab (from which he came) is being managed. Job ID: [id number]
--- NOTE | 2019-07-05 14:26 | PDOC.CPN ---
- Subjective Date: 07/05/19 Time: 14:25 Interval history: No new issues. No chest pain, breathing at baseline. - Review of Systems General: denies: fever/chills, weight/appetite/sleep changes, night sweats, fatigue Respiratory: denies: cough, congestion, shortness of breath, exercise intolerance Cardiovascular: denies: chest pain, palpitation, edema, paroxysmal nocturnal dyspnea, orthopnea Gastrointestinal: denies: nausea, vomiting, diarrhea, constipation, abd pain, GI bleeding Musculoskeletal: denies: pain, tenderness, stiffness, swelling, arthritis/ arthralgias Neurological: denies: numbness, syncope, seizure, weakness - Objective Allergies/Adverse Reactions: Allergies Allergy/AdvReac Type Severity Reaction Status Date / Time No Known Allergies Allergy Verified 07/02/19 22:48 Visit Medications: Current Medications Acetaminophen (Tylenol) 1,000 mg PO Q6H [facility] Last Admin: 07/05/19 08:25 Dose: 1,000 mg Aspirin (Ecotrin) 81 mg PO DAILY [facility] Last Admin: 07/05/19 08:25 Dose: 81 mg Atorvastatin Calcium (Lipitor) 10 mg PO HS [facility] Last Admin: 07/04/19 20:27 Dose: 10 mg Carvedilol (Coreg) 6.25 mg PO BID [facility] Last Admin: 07/05/19 08:25 Dose: 6.25 mg Dextrose/Water (Dextrose 50%) 25 gm SLOW IVP PRN PRN PRN Reason: Hypoglycemia Finasteride (Proscar) 5 mg PO DAILY [facility] Last Admin: 07/05/19 08:25 Dose: 5 mg Fluoxetine HCl (Prozac) 20 mg PO DAILY [facility] Last Admin: 07/05/19 08:26 Dose: 20 mg Furosemide (Lasix) 40 mg PO 0600,1400 [facility] Last Admin: 07/05/19 05:40 Dose: 40 mg Glucagon (Glucagon) 1 mg IM PRN PRN PRN Reason: Hypoglycemia Piperacillin Sod/Tazobactam (Sod 4.5 gm/ Sodium Chloride) 100 mls @ 200 mls/hr IVPB Q6HR [facility] Last Admin: 07/05/19 12:57 Dose: 100 mls Dextrose/Water (D5w) 1,000 mls @ 0 mls/hr IV .Q0M PRN PRN Reason: Hypoglycemia Insulin Glargine 10 units/ (Miscellaneous Medication) 0.1 mls @ 0 mls/hr SC QAM [facility] Insulin Glargine 15 units/ (Miscellaneous Medication) 0.15 mls @ 0 mls/hr SC HS [facility] Insulin Human Lispro (Humalog) 0 units SC .MILD SLIDING SCALE PRN PRN Reason: Mild Correctional Scale Last Admin: 07/05/19 12:31 Dose: 6 unit Insulin Human Lispro (Humalog) 0 units SC .BEDTIME SLIDING SC PRN PRN Reason: Bedtime Correctional Scale Last Admin: 07/04/19 20:45 Dose: 4 unit Ondansetron HCl (Zofran Odt) 4 mg PO Q6H PRN PRN Reason: Nausea/Vomiting Last Admin: 07/04/19 21:39 Dose: 4 mg Pantoprazole Sodium (Protonix) 40 mg IVP DAILY [facility] Last Admin: 07/05/19 10:34 Dose: 40 mg Polyethylene Glycol (Miralax) 17 gm PO DAILYPRN PRN PRN Reason: Constipation Polyethylene Glycol (Miralax) 17 gm PO DAILY [facility] Last Admin: 07/05/19 08:25 Dose: 17 gm Simethicone (Mylicon Chewable) 80 mg PO TIDPRN PRN PRN Reason: Gas Pain Last Admin: 07/04/19 22:27 Dose: 80 mg Tramadol HCl (Ultram) 50 mg PO Q6H PRN PRN Reason: Moderate to Severe Pain (6-10) Last Admin: 07/04/19 22:30 Dose: 50 mg Vital Signs & Weight: Vital Signs Temp Pulse Resp BP Pulse Ox 07/05/19 08:25 99 07/05/19 08:00 97.5 F L 95 20 127/78 99 Admit Weight 220 lb Weight 224 lb - Physical Exam General: no apparent distress HEENT: mucus membranes moist Neck: supple neck Cardiac: irregularly regular Lungs: normal breath sounds Neuro: grossly intact Abdomen: active bowel sounds Extremities: no edema Skin: clear Musculoskeletal: no pain - Labs Result Diagrams: 07/05/19 05:19 07/03/19 05:25 - Assessment/Plan Assessment/Plan: 1. Ruptured cholecystitis, abdominal abscess. 2. Chronic systolic heart failure. 3. Chronic afib rate controlled. 4. Presence of a PPM. PLAN: - EF at 40-45%. - Seems euvolemic at this time. - Judicious use of fluids - Continue current PO dose of lasix and Coreg. - Will continue to monitor. - Stable from CV standpoint.
--- NOTE | 2019-07-05 14:59 | CT ---
CT-guided intra-abdominal abscess drainage and percutaneous cholecystostomy: DATE: 07/03/2019 HISTORY: 88-year-old male with pericholecystic abscess due to ruptured acute cholecystitis. TECHNIQUE: Signed informed consent obtained. Patient placed supine on CT table. Entire procedure performed under step CT guidance. Right upper quadrant anterior skin prepped and draped in usual sterile fashion. 25-gauge needle used to apply buffered lidocaine. 5 Tristanian Yueh catheter with stylette advanced into the anterior portion of the collection in the gallbladder fossa. Stylette removed. A 0.035 inch stiff Amplatz short guidewire advanced through the Yueh catheter and into the collection. The guidewi re traversed the collection, and entered the defect in the gallbladder. The UA catheter was exchanged over the guidewire for an 8 Tristanian dilator, which was subsequently exchanged over the guide wire for an 8 Tristanian general purpose drainage catheter. Stylette of the drainage catheter and guidewire were removed. The drainage catheter was sutured in place at the skin, attached to external drainage bag via three-way stopcock, and lavaged with 30 mL of normal saline. A total of 65 mL of opaque marin-black purulent bile was drained. Approximately 30 mL of this was sent to laboratory for c ulture and sensitivity. Catheter was left to external drainage, with instructions for twice-daily flushings with 5 mL normal saline. Patient tolerated procedure well. No complications. The subcapsular hepatic abscess was elected not to be drained at this time, because gaining access ma y require traversing the far caudal lateral reflection of the right hemidiaphragm. FINDINGS: Initial images demonstrate Yueh catheter entering the anterior portion of the fluid collection in the gallbladder fossa. Subsequent CT scan covering long craniocaudal range demonstrates the 8 Tristanian pigtail drainage catheter traversing the fluid collection, with pigtail loop within the lumen of the fundus of the gallbladder located inferiorly on the images. Final CT scan demonstrates minimal interval decrease in the volume of the collection in the right upper quadrant. Gas present in the lum en of the fundus of the gallbladder is from the flushes. IMPRESSION: 1. Successful percutaneous right upper quadrant abscess drainage and percutaneous cholecystostomy, gagan th with a single puncture and single 8 Tristanian pigtail drainage catheter. The catheter traverses the right upper quadrant collection, and the pigtail loop distal tip is within the lumen of the fundus of the gallbladder. 2. Recommend follow-up CT noncontrast of abdomen in 3-5 days to evaluate the status of the collection in the gallbladder fossa, the gallbladder itself, and the subcapsular, subdiaphragmatic hepatic abscess at the dome of the liver. Transcribed Date/Time: 07/05/2019 2:58 PM
[2019-07-05] MEDS: Ampicillin/Sulbactam 3 GM in Sodium Chloride 0.9% 100 ML IVPB SCH (18:33)
[2019-07-05] MEDS ORDERED: Non-Formulary Item 1 EACH (Insulin Detemir [Levemir] 15 UNIT) SQ SCH (21:00)
[2019-07-05] MEDS: Insulin Glargine 15 UNITS in Pre-Filled Syringe 1 EACH SC SCH (22:09)
[2019-07-05] MEDS: Atorvastatin Calcium 10 MG TAB PO SCH (22:09)
[2019-07-05] MEDS: traMADol HCl 50 MG TAB PO PRN (22:11)
[2019-07-06] MEDS: Ampicillin/Sulbactam 3 GM in Sodium Chloride 0.9% 100 ML IVPB SCH ×5 (00:18→23:51)
[2019-07-06] MEDS: Furosemide 40 MG TAB PO SCH ×2 (05:06→14:57)
[2019-07-06] MEDS: Acetaminophen 500 MG TAB PO SCH ×4 (05:07→20:06)
[2019-07-06] MEDS: HumaLOG 300 UNITS/3 ML VIAL SC PRN ×3 (05:21→20:09)
[2019-07-06 06:35] LABS: #Eosinphils 0.2 thou/uL (0.0-0.7); #Lymphocytes 0.9 thou/uL (1.20-3.40); #Monocytes 0.8 thou/uL (0.11-0.59); #Neutrophils 15.8 thou/uL (1.40-6.50); %Basophils 0.2 % (0.0-1.0); %Eosinophils 1.2 % (0.0-10.0); %Lymphocytes 5.2 % (21.0-51.0); %Monocytes 4.6 % (0.0-10.0); %Neutrophils 88.9 % (42.0-75.0); Hemoglobin 11.6 g/dL (14.0-18.0); Mean Corpuscular HGB CONC 31.1 g/dL (32.0-36.0); Mean Corpuscular Hemoglobin 29.4 pg (27.0-31.0); Mean Corpuscular Volume 94.6 fL (78.0-98.0); Mean Platelet Volume 7.4 fL (7.4-10.4); Platelet Count 292 thou/uL (130-400); RBC Distribution Width 13.1 % (11.5-14.5); Red Blood Cell (RBC) Count 3.94 mill/uL (4.70-6.10); White Blood Cell (WBC) Count 17.8 thou/uL (4.8-10.8)
--- NOTE | 2019-07-06 06:47 | PDOC.FM ---
- Subjective Subjective: Doing well. Had 1 episode of urinary retention overnight. In and out cath produced 415mL. Complaining of abdominal pain this morning. - Objective MAR Reviewed: Yes Vital Signs & Weight: Vital Signs (12 hours) Temp Pulse Resp BP Pulse Ox 07/06/19 00:00 98.0 F 103 H 18 118/68 100 07/05/19 20:40 100 07/05/19 19:03 97.1 F L 107 H 16 121/69 100 Weight Admit Weight 99.79 kg Weight 101.605 kg I&O: 07/04/19 07/05/19 07/06/19 06:59 06:59 06:59 Intake Total 3130 1787 Output Total 2830 65 850 Balance 300 -65 937 Result Diagrams: 07/06/19 06:11 07/06/19 06:11 Phys Exam - Physical Examination Constitutional: NAD HEENT: PERRLA, moist MMs Neck: no nodes, supple, full ROM Respiratory: no wheezing, no rales, no rhonchi, clear to auscultation bilateral Cardiovascular: RRR, no significant murmur, no rub Gastrointestinal: soft, no distention, positive bowel sounds Appropriately tender to palpation. Musculoskeletal: no edema, pulses present Neurological: non-focal, normal sensation, moves all 4 limbs Psychiatric: normal affect, A&O x 3 Skin: no rash, normal turgor Dx/Plan (1) A-fib Code(s): I48.91 - UNSPECIFIED ATRIAL FIBRILLATION Status: Acute (2) Anxiety Code(s): F41.9 - ANXIETY DISORDER, UNSPECIFIED Status: Acute (3) CAD (coronary artery disease) Code(s): I25.10 - ATHSCL HEART DISEASE OF [place] CORONARY ARTERY W/O ANG PCTRS Status: Acute (4) CHF (congestive heart failure) Code(s): I50.9 - HEART FAILURE, UNSPECIFIED Status: Acute (5) Cholecystitis with perforation of gallbladder Code(s): K82.A2 - PERFORATION OF GALLBLADDER IN CHOLECYSTITIS Status: Acute (6) Depression Code(s): F32.9 - MAJOR DEPRESSIVE DISORDER, SINGLE EPISODE, UNSPECIFIED Status : Acute (7) Diabetes Code(s): E11.9 - TYPE 2 DIABETES MELLITUS WITHOUT COMPLICATIONS Status: Acute (8) HLD (hyperlipidemia) Code(s): E78.5 - HYPERLIPIDEMIA, UNSPECIFIED Status: Acute (9) HTN (hypertension) Code(s): I10 - ESSENTIAL (PRIMARY) HYPERTENSION Status: Acute (10) Hypothyroidism Code(s): E03.9 - HYPOTHYROIDISM, UNSPECIFIED Status: Acute (11) AYDEN (obstructive sleep apnea) Code(s): G47.33 - OBSTRUCTIVE SLEEP APNEA (ADULT) (PEDIATRIC) Status: Acute - Plan Plan: Abdominal pain this morning thought to be related to gas pain as patient had significant flatulence that mildly relieved it. Gave prn simethicone. Gallbladder Perforation, Abscess Formation. S/p -CT ABD/Pelvis: Large gallbladder fossa multiloculated cyst, likely 2/2 to perforation, abscess -GenSurg: Consulted - recs appreciated. Plans to repeat scans and drain any remaining abscess tomorrow. -Radiology: Consulted - CT-guided abscess drainage on 07/02 - ID: Consulted - appreciate rec's. Culture resulted: E. [place], enterococcus, and alpha hemolytic strep. - Kathleen sensitive. Will await ID recommendations. CHF - Will continue home medication regimen and avoid fluid overload - Cards consulted, appreciate rec's. - ECHO EF 40-45%, atrial fibrillation. A-Fib, Rate-Controlled - Will continue to hold Warfarin and DVT PPx per surgery recommendations. - Patient is currently rate-controlled - will continue home medication regimen - Will need to discuss warfarin with pt/family as they do not want aggressive treatment for cholecystitis w/ perforation/abscess. Need to discuss risks vs benefits. Will discuss on on discharge. Urinary retention - s/p in and out cath. Continue to monitor. - If persists, will need reza catheter. DM2 -Continue home medication regimen -ACHS accuchecks -Mild SSI -Hypoglycemia Protocol HLD -Will continue home medication regimen HTN -BP currently at goal -Will continue home medication regimen AYDEN -Patient states that he had used a CPAP machine several years prior but thought that "it didn't help much" -Will consider RT consult for CPAP if patient demonstrates severe sleep disruption Anxiety/Depression -Patient does not endorse significant symptoms at this time -Continue home medication regimen PCP: Gloria Code: DNAR Diet: clears, advance as tolerated Activity: Ambulate w/ Assist VTE PPx: None Addendum - Attending - Attending Attestation Date/Time: 07/06/19 7916 I personally evaluated the patient and discussed the management with Dr. Tellez I agree with the History, Examination, Assessment and Plan documented above with any addition or exceptions noted below - Patient c/o some diffuse abdominal pain. Afebrile VSS. A/P: 1) Subhepatic abscess- continue current antibiotics. Plan for repeat CT abdomen tomorrow. 2) DM- continue accuchecks and current meds. 3) Afib- intermittently elevated heart rates; continue to monitor. Can increase coreg if needed.
[2019-07-06 06:56] LABS: ALT (SGPT) 36 U/L (8-55); AST (SGOT) 28 U/L (5-34); Alkaline Phosphatase 145 U/L (40-110); Anion Gap 11 mmol/L (10-20); BUN (Urea Nitrogen) 19 mg/dL (8.4-25.7); Bilirubin, Total 0.6 mg/dL (0.2-1.2); Calc. Creatinine Clearance 65 mL/min (70-130); Calcium 7.9 mg/dL (7.8-10.44); Carbon Dioxide 26 mmol/L (23-31); Chloride 103 mmol/L (98-107); Estimated GFR-MDRD 59; Globulin 3.2 g/dL (2.4-3.5); Glucose 182 mg/dL (83-110); Potassium 3.1 mmol/L (3.5-5.1); Protein, Total 5.2 g/dL (5.8-8.1); Sodium 137 mmol/L (136-145)
[2019-07-06] MEDS: FLUoxetine HCl 20 MG CAP PO SCH (08:19)
[2019-07-06] MEDS: Aspirin 81 mg Enteric Coated Tablet PO SCH (08:19)
[2019-07-06] MEDS: Carvedilol 3.125 MG TAB PO SCH ×2 (08:19→20:06)
[2019-07-06] MEDS: Finasteride 5 MG TAB PO SCH (08:19)
[2019-07-06] MEDS: Polyethylene Glycol 3350 17 GM Packet PO SCH (08:20)
[2019-07-06] MEDS: traMADol HCl 50 MG TAB PO PRN (08:20)
[2019-07-06] MEDS: Pantoprazole 40 MG VIAL IVP SCH (08:20)
--- NOTE | 2019-07-06 08:38 | PRG ---
DATE OF SERVICE: 07/05/2019 SUBJECTIVE: Mr. Montoya is feeling better, less pain and lesser symptoms. Able to urinate without difficulty. OBJECTIVE: VITAL SIGNS: T-max 98.4, blood pressure 120/70, pulse 95, respirations 20, and O2 saturation 99%. SKIN: Shows the pigtail catheter in the right upper quadrant with purulent drainage. LUNGS: Clear. HEART: S1 and S2. Regular rate. ABDOMEN: Soft, not distended. GENITOURINARY: He is voiding in the urinal without difficulty. EXTREMITIES: Trace edema in the lower extremities. NEUROLOGIC: Awake, alert, and oriented, much more responsive than previously. LABORATORY DATA: White cell count is down to 17,000, hemoglobin 11, platelets 308, 97% neutrophils. Last creatinine was from 2 days ago, 1. AST is 51, ALT 61, alkaline phosphatase 162, and albumin 2.2. Microbiology with E coli, Enterococcus, E coli with a broad susceptibility profile. ASSESSMENT AND DISCUSSION: Type 2 diabetes, ischemic cardiomyopathy, automatic implantable cardioverter-defibrillator, perforated cholecystitis with gallbladder abscess and subhepatic abscess in the david hepatis with polymicrobial ja. The patient is currently on Zosyn. The options for management would include transition to Rocephin or Unasyn. Unasyn will have better coverage for Enterococcus and have some anaerobic coverage as well Enterococcus. So, I think Unasyn would be the best choice at the moment. The only drawback would be the multiple schedule of the administration. Eventually, he could be transitioned to oral quinolone plus Augmentin, which would simplify management. Depending on his drainage and the progress, we could make this transition upon transfer to whatever unit he is going to be transferred to. A combination of Cipro 500 b.i.d. plus Augmentin 875 b.i.d. for a protracted period of time should be effective. Job ID: [id number] [facility]
[2019-07-06] MEDS ORDERED: Insulin Glargine 10 UNITS in Pre-Filled Syringe 1 EACH SC SCH (09:00)
[2019-07-06] MEDS ORDERED: Non-Formulary Item 1 EACH (Insulin Detemir [Levemir] 10 UNIT) SQ SCH (09:00)
[2019-07-06] MEDS: Simethicone Chewable 80 MG TAB PO PRN (09:32)
[2019-07-06] MEDS ORDERED: Lorazepam 0.5 MG TAB PO SCH (11:15)
--- NOTE | 2019-07-06 17:54 | PDOC.CPN ---
- Subjective Date: 07/06/19 Time: 17:52 Interval history: No chest pain, breathing at baseline. - Review of Systems ROS unobtainable: due to mental status - Objective Allergies/Adverse Reactions: Allergies Allergy/AdvReac Type Severity Reaction Status Date / Time No Known Allergies Allergy Verified 07/02/19 22:48 Visit Medications: Current Medications Acetaminophen (Tylenol) 1,000 mg PO Q6H [facility] Last Admin: 07/06/19 14:57 Dose: 1,000 mg Aspirin (Ecotrin) 81 mg PO DAILY [facility] Last Admin: 07/06/19 08:19 Dose: 81 mg Atorvastatin Calcium (Lipitor) 10 mg PO HS [facility] Last Admin: 07/05/19 22:09 Dose: 10 mg Carvedilol (Coreg) 6.25 mg PO BID [facility] Last Admin: 07/06/19 08:19 Dose: 6.25 mg Dextrose/Water (Dextrose 50%) 25 gm SLOW IVP PRN PRN PRN Reason: Hypoglycemia Finasteride (Proscar) 5 mg PO DAILY [facility] Last Admin: 07/06/19 08:19 Dose: 5 mg Fluoxetine HCl (Prozac) 20 mg PO DAILY [facility] Last Admin: 07/06/19 08:19 Dose: 20 mg Furosemide (Lasix) 40 mg PO 0600,1400 [facility] Last Admin: 07/06/19 14:57 Dose: 40 mg Glucagon (Glucagon) 1 mg IM PRN PRN PRN Reason: Hypoglycemia Dextrose/Water (D5w) 1,000 mls @ 0 mls/hr IV .Q0M PRN PRN Reason: Hypoglycemia Insulin Glargine 10 units/ (Miscellaneous Medication) 0.1 mls @ 0 mls/hr SC QAM [facility] Last Admin: 07/06/19 08:19 Dose: 0.1 mls Insulin Glargine 15 units/ (Miscellaneous Medication) 0.15 mls @ 0 mls/hr SC HS [facility] Last Admin: 07/05/19 22:09 Dose: 0.15 mls Ampicillin Sodium/Sulbactam (Sodium 3 gm/ Sodium Chloride) 100 mls @ 200 mls/ hr IVPB Q6HR [facility] Last Admin: 07/06/19 11:21 Dose: 100 mls Insulin Human Lispro (Humalog) 0 units SC .MILD SLIDING SCALE PRN PRN Reason: Mild Correctional Scale Last Admin: 07/06/19 16:44 Dose: 4 unit Insulin Human Lispro (Humalog) 0 units SC .BEDTIME SLIDING SC PRN PRN Reason: Bedtime Correctional Scale Last Admin: 07/05/19 22:08 Dose: 5 unit Ondansetron HCl (Zofran Odt) 4 mg PO Q6H PRN PRN Reason: Nausea/Vomiting Last Admin: 07/04/19 21:39 Dose: 4 mg Pantoprazole Sodium (Protonix) 40 mg IVP DAILY [facility] Last Admin: 07/06/19 08:20 Dose: 40 mg Polyethylene Glycol (Miralax) 17 gm PO DAILYPRN PRN PRN Reason: Constipation Polyethylene Glycol (Miralax) 17 gm PO DAILY [facility] Last Admin: 07/06/19 08:20 Dose: 17 gm Senna/Docusate Sodium (Senokot S) 1 tab PO BID [facility] Simethicone (Mylicon Chewable) 80 mg PO TIDPRN PRN PRN Reason: Gas Pain Last Admin: 07/06/19 09:32 Dose: 80 mg Tramadol HCl (Ultram) 50 mg PO Q6H PRN PRN Reason: Moderate to Severe Pain (6-10) Last Admin: 07/06/19 08:20 Dose: 50 mg Vital Signs & Weight: Vital Signs Temp Pulse Resp BP Pulse Ox 07/06/19 07:16 97.8 F 86 18 143/75 H 100 Admit Weight 220 lb Weight 224 lb - Physical Exam General: no apparent distress HEENT: normocephaly Neck: supple neck Cardiac: irregularly regular Lungs: normal breath sounds Neuro: no lateralizing findings Abdomen: active bowel sounds Extremities: 1+ LE edema Skin: clear Musculoskeletal: no pain - Labs Result Diagrams: 07/06/19 06:11 07/06/19 06:11 - Assessment/Plan Assessment/Plan: 1. Ruptured cholecystitis, abdominal abscess. 2. Chronic systolic heart failure. 3. Chronic afib rate controlled. 4. Presence of a PPM. PLAN: - EF at 40-45%. - Edema on both legs worse today. Will give on dose IV lasix. - Judicious use of fluids - Continue current PO dose of lasix and Coreg.
--- NOTE | 2019-07-06 18:14 | PRG ---
DATE OF SERVICE: SUBJECTIVE: Kamilah Montoya is an 88-year-old male, undergone percutaneous drainage of neglected cholecystitis, perforated with severe inflammatory changes, right subhepatic and subcapsular right lobe. He has had a drainage catheter in place. Dr. Can has seen him. Cultures revealed an E coli enterococcus, 2 strand species. He is on Zosyn. Dr. Can is planning intravenous infusion therapy for a while and then conversion to conversion to Augmentin and Cipro. The patient states he is feeling fairly well. He is eating well. He remains afebrile. OBJECTIVE: VITAL SIGNS: Temperature 97.8 degrees, pulse 86, respirations 18, and blood pressure 143/75. HEAD, EARS, EYES, NOSE, AND THROAT: Unremarkable. LUNGS: Clear to auscultation. CARDIAC: Regular rate and rhythm without murmur or gallop. ABDOMEN: Soft plus bowel sounds. Minimal tenderness in right upper quadrant. Drainage catheter, bile, purulent material. Output 100 mL, 24 hours, nurses are irrigating this twice a day. ASSESSMENT AND PLAN: Right subhepatic abscess secondary to perforated cholecystitis. Continue antibiotic therapy. We will plan CT scan of the abdomen and pelvis tomorrow to recheck his drainage catheter, subhepatic inflammatory process, and to place a new drain if indicated based on radiological findings. We will plan this tomorrow; hopefully, can be discharged home later over the week with antibiotic regimen as dictated by Dr. Can and then he would follow up in my office in about 2 weeks. He will need outpatient arrangement for probable infusion antibiotic therapy. parking worker should be working on this. Job ID: [id number]
[2019-07-06] MEDS: Senokot S 8.6-50 MG TAB PO SCH (20:06)
[2019-07-06] MEDS: Atorvastatin Calcium 10 MG TAB PO SCH (20:06)
[2019-07-06] MEDS: Insulin Glargine 15 UNITS in Pre-Filled Syringe 1 EACH SC SCH (20:08)
--- NOTE | 2019-07-06 20:19 | PQF ---
CLINICAL DOCUMENTATION IMPROVEMENT CLARIFICATION FORM: ICD-10 Updated PLEASE DO AN ADDENDUM TO THE PROGRESS NOTE WITH ANY DOCUMENTATION UPDATES OR ADDITIONS AND CARRY THROUGH TO DC SUMMARY. THANK YOU. DATE: 07/06/19 ATTN: DR. ROCK Please exercise your independent, professional judgment in responding to the clarification form. Clinical indicators are provided on the bottom of this form for your review Please check appropriate box(s): Conflicting documentation was noted in the Medical Record, please clarify if patient is being treated/monitored for: [ ] ACUTE SYSTOLIC CHF [ ] CHRONIC SYSTOLIC CHF [ X ] ACUTE ON CHRONIC SYSTOLIC CHF [ ] Other diagnosis [ ] Unable to determine In addition, please specify: Present on Admission (POA): [ ] Yes [ ] No [ ] Unable to determine For continuity of documentation, please document condition throughout progress notes and discharge summary. Thank You. CARDIOLOGY PN /: "CHRONIC SYSTOLIC HEART FAILURE" PN 07/05: "ACUTE CHF, UNSPECIFIED" CARDIOLOGY NOTE 07/05: "CHRONIC SYSTOLIC HEART FAILURE, EDEMA ON BOTH LEGS WORSE TODAY" RISKS: AFIB (PN /) CHF (PN 07/05) HYPERTENSION (PN 07/05) TREATMENT: CARDIOLOGY CONSULT ECHOCARDIOGRAM LASIX (07/02-PRESENT) COREG (07/02-PRESENT) IV LASIX PER CARDIOLOGY NOTE 07/05 (This form is maintained as a part of the permanent medical record) [employer]ist [employer] 2015 [employer] All Rights Reserved STEPHANIE [email or web address] Cell [facility]
[2019-07-07] MEDS: traZODone HCl 50 MG TAB PO PRN (01:27)
[2019-07-07] MEDS: Acetaminophen 500 MG TAB PO SCH ×4 (04:01→20:13)
[2019-07-07] MEDS: Ampicillin/Sulbactam 3 GM in Sodium Chloride 0.9% 100 ML IVPB SCH (05:31)
[2019-07-07] MEDS: Furosemide 40 MG TAB PO SCH ×2 (05:31→14:40)
[2019-07-07] MEDS: HumaLOG 300 UNITS/3 ML VIAL SC PRN ×3 (05:36→20:16)
--- NOTE | 2019-07-07 07:23 | PDOC.FM ---
- Subjective Subjective: Doing well. Still complaining of abdominal discomfort and bloating. Repeat CT scan planned for this morning. - Objective MAR Reviewed: Yes Vital Signs & Weight: Vital Signs (12 hours) Temp Pulse Resp BP Pulse Ox 07/06/19 21:15 100 07/06/19 20:00 97.9 F 104 H 18 141/77 H 100 Weight Admit Weight 99.79 kg Weight 101.605 kg I&O: 07/06/19 07/07/19 07/08/19 06:59 06:59 06:59 Intake Total 1787 550 Output Total 850 252 Balance 937 298 Result Diagrams: 07/06/19 06:11 07/06/19 06:11 Phys Exam - Physical Examination Constitutional: NAD HEENT: PERRLA, moist MMs Neck: no nodes, supple Respiratory: no wheezing, clear to auscultation bilateral Crackles present in the bases bilaterally. Cardiovascular: RRR, no significant murmur Gastrointestinal: soft, positive bowel sounds Mildly TTP, mildly tympanic to percussion trace edema present Neurological: non-focal, normal sensation Psychiatric: normal affect, A&O x 3 Skin: no rash, normal turgor Dx/Plan (1) A-fib Code(s): I48.91 - UNSPECIFIED ATRIAL FIBRILLATION Status: Acute (2) Anxiety Code(s): F41.9 - ANXIETY DISORDER, UNSPECIFIED Status: Acute (3) CAD (coronary artery disease) Code(s): I25.10 - ATHSCL HEART DISEASE OF [place] CORONARY ARTERY W/O ANG PCTRS Status: Acute (4) CHF (congestive heart failure) Code(s): I50.9 - HEART FAILURE, UNSPECIFIED Status: Acute (5) Cholecystitis with perforation of gallbladder Code(s): K82.A2 - PERFORATION OF GALLBLADDER IN CHOLECYSTITIS Status: Acute (6) Depression Code(s): F32.9 - MAJOR DEPRESSIVE DISORDER, SINGLE EPISODE, UNSPECIFIED Status : Acute (7) Diabetes Code(s): E11.9 - TYPE 2 DIABETES MELLITUS WITHOUT COMPLICATIONS Status: Acute (8) HLD (hyperlipidemia) Code(s): E78.5 - HYPERLIPIDEMIA, UNSPECIFIED Status: Acute (9) HTN (hypertension) Code(s): I10 - ESSENTIAL (PRIMARY) HYPERTENSION Status: Acute (10) Hypothyroidism Code(s): E03.9 - HYPOTHYROIDISM, UNSPECIFIED Status: Acute (11) AYDEN (obstructive sleep apnea) Code(s): G47.33 - OBSTRUCTIVE SLEEP APNEA (ADULT) (PEDIATRIC) Status: Acute - Plan Plan: Abdominal pain this morning thought to be related to gas pain as patient had significant flatulence that mildly relieved it. Gave prn simethicone. Gallbladder Perforation, Abscess Formation. S/p -CT ABD/Pelvis: Large gallbladder fossa multiloculated cyst, likely 2/2 to perforation, abscess -GenSurg: Consulted - recs appreciated. Plans to repeat scans and drain any remaining abscess tomorrow. -Radiology: Consulted - CT-guided abscess drainage on 07/02 - ID: Consulted - appreciate rec's. Culture resulted: E. [place], enterococcus, and alpha hemolytic strep. - Kathleen sensitive. On Unasyn CHF - Will continue home medication regimen and avoid fluid overload - Cards consulted, appreciate rec's. - ECHO EF 40-45%, atrial fibrillation. - Rales in lungs today, O2 sat 95%, adding 20mg IV lasix one time this morning and will monitor for improvement. A-Fib, Rate-Controlled - Will continue to hold Warfarin and DVT PPx per surgery recommendations. - Patient is currently rate-controlled - will continue home medication regimen - Will need to discuss warfarin with pt/family as they do not want aggressive treatment for cholecystitis w/ perforation/abscess. Need to discuss risks vs benefits. Will discuss on on discharge. Urinary retention - s/p in and out cath. Continue to monitor. - If persists, will need reza catheter. DM2 - Increase home doses of Lantus (levemir substitute) due to poor glycemic control. -ACHS accuchecks -Mild SSI -Hypoglycemia Protocol HLD -Will continue home medication regimen HTN -Will continue home medication regimen AYDEN -aware Anxiety/Depression -Patient does not endorse significant symptoms at this time -Continue home medication regimen PCP: Gloria Code: DNAR Diet: clears, advance as tolerated Activity: Ambulate w/ Assist VTE PPx: None Addendum - Attending - Attending Attestation Date/Time: 07/07/19 5155 I personally evaluated the patient and discussed the management with Dr. Tellez I agree with the History, Examination, Assessment and Plan documented above with any addition or exceptions noted below - Patient feeling a little better. SOB resolved. Afebrile VSS. A/P: 1) Gallbladder and subhepatic abscess- Continue IV abx; repeat CT abd report pending. Changed to po antibiotics by ID and tolerating them 2) DM- BG elevated; will adjust insulin. Continue to monitor accuchecks.
[2019-07-07] MEDS ORDERED: Furosemide 20 MG/2 ML VIAL SLOW IVP SCH (08:15)
[2019-07-07] MEDS: FLUoxetine HCl 20 MG CAP PO SCH (08:41)
[2019-07-07] MEDS: Finasteride 5 MG TAB PO SCH (08:41)
[2019-07-07] MEDS: Potassium Chloride 20 MEQ TAB PO SCH ×2 (08:41→18:07)
[2019-07-07] MEDS: Carvedilol 3.125 MG TAB PO SCH ×2 (08:41→20:13)
[2019-07-07] MEDS: Insulin Glargine 15 UNITS in Pre-Filled Syringe 1 EACH SC SCH (08:42)
[2019-07-07] MEDS: Senokot S 8.6-50 MG TAB PO SCH ×2 (08:42→20:13)
[2019-07-07] MEDS: Aspirin 81 mg Enteric Coated Tablet PO SCH (08:42)
[2019-07-07] MEDS: Pantoprazole 40 MG VIAL IVP SCH (08:42)
[2019-07-07] MEDS: Polyethylene Glycol 3350 17 GM Packet PO SCH (08:42)
[2019-07-07] MEDS ORDERED: Midazolam HCl 2 mg/2 ml Vial ONE (09:10)
[2019-07-07] MEDS ORDERED: Fentanyl 100 MCG/2 ML VIAL ONE (09:12)
[2019-07-07] MEDS ORDERED: Sodium Bicarbonate 2.5 MEQ/5 ML VIAL ONE (09:12)
[2019-07-07] MEDS ORDERED: Iopamidol 300 61% 50 ML VIAL FS ONE (09:16)
--- NOTE | 2019-07-07 10:07 | CT ---
CT Abdomen WO Con 07/07/2019 9:00 AM HISTORY: Patient with multiloculated subcapsular hepatic abscess collection as well as a large multiloculated abscess collection adjacent to the gallbladder likely secondary to perforated cholecystitis. A percutaneous abscess drainage was performed of the collection adjacent to the gallbladder. This is a follow-up evaluation. COMPARISON: 07/02/[address] abscess drainage procedure on 07/03/2019 Technique: Multiple contiguous axial CT images are obtained through the abdomen and pelvis without IV contrast. Coronal reformats are provided. FINDINGS: This examination is limited for the evaluation of solid organs and vascular structures due to the lac k of intravenous contrast. Lower Chest: Small left pleural effusion is now present. The small pleural fluid collection at the ri ght lung base is seen which may potentially be partially loculated. Minimal pleural-based calcifications are again seen at the medial right lung base. Abdomen: Liver: Again noted is a subcapsular fluid collection at the dome of the liver and extending along the lateral margin of the liver which is unchanged compared to prior exam. Gallbladder: A right upper quadrant drainage catheter is noted in place. The distal portion of the dr plata catheter was noted to be within the gallbladder fundus on prior exam, but the catheter has withdrawn outside of the wall of the gallbladder and is now located within the multiloculated collect ion. Multiloculated appearing collection does appear smaller in size. Margins of the collection with respect to the anterior wall of the gallbladder are difficult to delineate on this nonenhanced C T exam. The most superior portion of the collection in greatest axial dimensions previously measured 11.5 cm transverse x5.9 cm AP with dimensions on today's examination of 11.4 cm transverse x 4.7 cm AP. This is contiguous with the collection just anterior to the gallbladder which is difficult to delineate with respect to the adjacent gallbladder but measures approximately 6.9 cm tra nsverse x 6 cm AP with previous measurement of 7.4 cm x 7.3 cm. Mild adjacent inflammatory stranding is present at the inferior aspect of the liver, but this is similar to prior exam. Pancreas: Grossly normal nonenhanced CT appearance. Spleen: Grossly normal nonenhanced CT appearance. Adrenals: Grossly normal nonenhanced CT appearance. Kidneys: Grossly normal nonenhanced CT appearance. Symmetric perinephric stranding is again seen. Ureters: Normal in caliber where imaged. Bowel: A few scattered colonic diverticula are noted. Visualized loops of small bowel are normal in c aliber. Peritoneum: No free fluid, free air, or fluid collection. Vessels: Vascular calcifications are seen in the abdominal aorta and iliac arteries. AICD leads are p artially imaged at the base of the heart. Heart is mildly enlarged.. Abdominal Wall: Mild subcutaneous edema lateral aspect of the abdomen bilaterally greater on the righ t. Bones: Degenerative changes are seen in the spine with large hemangioma again present in the L3 verte bral body. IMPRESSION: 1. Right upper quadrant drainage catheter within a multiloculated collection in the region of the gal lbladder fossa and adjacent to the gallbladder. The collection is overall mildly smaller in size. 2. Overall stable subcapsular hepatic collection at the dome of liver and extending laterally along t he lateral margin of the liver. 3. Interval development of small left pleural effusion with persistent small right pleural fluid celia ection. Pleural fluid collection at the right lung base may potentially be loculated. 4. Additional findings as described above. 6. Above findings discussed Dr. Mendez, this examination on 07/07/2019.
--- NOTE | 2019-07-07 13:36 | PRG ---
DATE OF SERVICE: 07/07/2019 SUBJECTIVE: Kamilah Montoya is doing well today. He underwent a CAT scan of the abdomen and pelvis today, revealing the abscess cavity is smaller, the subcapsular process is a little better, though not resolved. The patient is eating fairly well. OBJECTIVE: VITAL SIGNS: Temperature 97.6, pulse 78, blood pressure 104/60. Drainage output is 35 mL in the last 24 hours. LUNGS: Clear to auscultation. CARDIAC: Regular rate and rhythm without murmur or gallop. ABDOMEN: Soft, nontender. ASSESSMENT AND PLAN: The patient is doing well today. He has a right subhepatic abscess. We will continue CT-guided drainage, irrigation of the tube 2 to 3 times a day, recording the output. I have talked to Dr. Can, plan is to treat him with oral Augmentin and Cipro. I would repeat his CAT scan of the abdomen and pelvis in 2 weeks and return to see me after that CAT scan, also follow up with Dr. Can after that CAT scan. From a Surgery standpoint, the patient is ready to be discharged to [facility]. At this point, I will see him as needed in this hospitalization. He should continue to have his CT guided drain in right upper quadrant, flush twice a day by staff at [facility], and receive oral antibiotics, Cipro and Augmentin for the next several weeks per Dr. Can. Job ID: [id number]
--- NOTE | 2019-07-07 16:31 | PDOC.CPN ---
- Subjective Date: 07/07/19 Time: 16:29 Interval history: No new issues. He looks better today. Sitting up eating lunch. - Review of Systems General: denies: fever/chills, weight/appetite/sleep changes, night sweats, fatigue Respiratory: denies: cough, congestion, shortness of breath, exercise intolerance Cardiovascular: denies: chest pain, palpitation, edema, paroxysmal nocturnal dyspnea, orthopnea Gastrointestinal: denies: nausea, vomiting, diarrhea, constipation, abd pain, GI bleeding Musculoskeletal: denies: pain, tenderness, stiffness, swelling, arthritis/ arthralgias Neurological: denies: numbness, syncope, seizure, weakness - Objective Allergies/Adverse Reactions: Allergies Allergy/AdvReac Type Severity Reaction Status Date / Time No Known Allergies Allergy Verified 07/02/19 22:48 Visit Medications: Current Medications Acetaminophen (Tylenol) 1,000 mg PO Q6H [facility] Last Admin: 07/07/19 14:40 Dose: 1,000 mg Amoxicillin/Clavulanate Potassium (Augmentin) 875 mg PO Q12HR [facility] Aspirin (Ecotrin) 81 mg PO DAILY [facility] Last Admin: 07/07/19 08:42 Dose: Not Given Atorvastatin Calcium (Lipitor) 10 mg PO [facility] Last Admin: 07/06/19 20:06 Dose: 10 mg Carvedilol (Coreg) 6.25 mg PO BID [facility] Last Admin: 07/07/19 08:41 Dose: 6.25 mg Ciprofloxacin (Cipro) 500 mg PO BID@0600,2000 [facility] Dextrose/Water (Dextrose 50%) 25 gm SLOW IVP PRN PRN PRN Reason: Hypoglycemia Finasteride (Proscar) 5 mg PO DAILY [facility] Last Admin: 07/07/19 08:41 Dose: 5 mg Fluoxetine HCl (Prozac) 20 mg PO DAILY [facility] Last Admin: 07/07/19 08:41 Dose: 20 mg Furosemide (Lasix) 40 mg PO 0600,1400 [facility] Last Admin: 07/07/19 14:40 Dose: 40 mg Glucagon (Glucagon) 1 mg IM PRN PRN PRN Reason: Hypoglycemia Dextrose/Water (D5w) 1,000 mls @ 0 mls/hr IV .Q0M PRN PRN Reason: Hypoglycemia Insulin Glargine 20 units/ (Miscellaneous Medication) 0.2 mls @ 0 mls/hr SC [facility] Insulin Glargine 15 units/ (Miscellaneous Medication) 0.15 mls @ 0 mls/hr SC [facility] Last Admin: 07/07/19 08:42 Dose: Not Given Insulin Human Lispro (Humalog) 0 units SC .MILD SLIDING SCALE PRN PRN Reason: Mild Correctional Scale Last Admin: 07/07/19 15:28 Dose: 6 unit Insulin Human Lispro (Humalog) 0 units SC .BEDTIME SLIDING SC PRN PRN Reason: Bedtime Correctional Scale Last Admin: 07/06/19 20:09 Dose: 3 unit Ondansetron HCl (Zofran Odt) 4 mg PO Q6H PRN PRN Reason: Nausea/Vomiting Last Admin: 07/04/19 21:39 Dose: 4 mg Pantoprazole Sodium (Protonix) 40 mg IVP DAILY [facility] Last Admin: 07/07/19 08:42 Dose: 40 mg Polyethylene Glycol (Miralax) 17 gm PO DAILYPRN PRN PRN Reason: Constipation Polyethylene Glycol (Miralax) 17 gm PO DAILY [facility] Last Admin: 07/07/19 08:42 Dose: Not Given Potassium Chloride (K-Dur) 40 meq PO BID-[facility] Last Admin: 07/07/19 08:41 Dose: 40 meq Senna/Docusate Sodium (Senokot S) 1 tab PO BID [facility] Last Admin: 07/07/19 08:42 Dose: Not Given Simethicone (Mylicon Chewable) 80 mg PO TIDPRN PRN PRN Reason: Gas Pain Last Admin: 07/06/19 09:32 Dose: 80 mg Sodium Chloride (Flush - Normal Saline) 10 ml IVF Q12HR [facility] Last Admin: 07/07/19 08:43 Dose: 10 ml Sodium Chloride (Flush - Normal Saline) 10 ml IVF PRN PRN PRN Reason: Saline Flush Tramadol HCl (Ultram) 50 mg PO Q6H PRN PRN Reason: Moderate to Severe Pain (6-10) Last Admin: 07/06/19 08:20 Dose: 50 mg Trazodone HCl (Desyrel) 50 mg PO HS PRN PRN Reason: Insomnia Last Admin: 07/07/19 01:27 Dose: 50 mg Vital Signs & Weight: Vital Signs Temp Pulse Resp BP Pulse Ox 07/07/19 11:06 97.6 F 78 20 104/60 97 07/07/19 08:00 95 07/07/19 07:20 99.0 F 77 18 122/78 95 Admit Weight 220 lb Weight 224 lb - Physical Exam General: no apparent distress HEENT: normocephaly Neck: supple neck Cardiac: irregularly regular Lungs: clear to auscultation Neuro: grossly intact Abdomen: unremarkable Extremities: no edema Skin: clear Musculoskeletal: no pain - Labs Result Diagrams: 07/06/19 06:11 07/06/19 06:11 - Assessment/Plan Assessment/Plan: 1. Ruptured cholecystitis, abdominal abscess. 2. Chronic systolic heart failure. 3. Chronic afib rate controlled. 4. Presence of a PPM. PLAN: - EF at 40-45%. - Diuresed with Lasix. Back to PO dose for now. - Judicious use of fluids - Continue current Coreg dose.
--- NOTE | 2019-07-07 17:02 | PRG ---
DATE OF SERVICE: 07/07/2019 SUBJECTIVE: The patient denies any pain, has no vomiting, voiding without difficulty. OBJECTIVE: VITAL SIGNS: T-max 99, BP 104/60, pulse 78, respirations 20, and O2 saturation 97%. SKIN: With peripheral IV access. HEENT: Ocular movements conjugate. LUNGS: Clear. HEART: S1 and S2, regular rate. ABDOMEN: Soft, not distended. LABORATORY DATA: White cell count 17.8, hemoglobin 11.6, platelets 292. Creatinine 1.18. Repeat CT showed a subcapsular fluid collection at the dome of the liver and extending along the lateral margin of the liver unchanged and there is a right upper quadrant drainage catheter noted in place. The distal portion of the catheter is noted to be within the gallbladder fundus, but now it has withdrawn outside the wall of gallbladder, is now located in the multiloculated collection. The dimensions are difficult to delineate of this collection, about 11.5 x 5.9 cm in initial measurement and now 11.4 x 4.7, is fairly similar. 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 We will switch the patient to a combination of Cipro and Augmentin. Plan to continue for protracted period of time with periodic or weekly CBC, CRP, CMP, and repeat imaging studies at intervals. Job ID: [id number]
[2019-07-07] MEDS: Cipro 250 MG TAB PO SCH (20:11)
[2019-07-07] MEDS: Atorvastatin Calcium 10 MG TAB PO SCH (20:13)
[2019-07-07] MEDS: Amoxicillin/Potassium Clav 875 MG TAB PO SCH (20:14)
[2019-07-07] MEDS ORDERED: Insulin Glargine 20 UNITS in Pre-Filled Syringe 1 EACH SC SCH (21:00)
[2019-07-08] MEDS: traZODone HCl 50 MG TAB PO PRN (00:22)
[2019-07-08] MEDS: Acetaminophen 500 MG TAB PO SCH ×2 (04:24→08:19)
[2019-07-08] MEDS: Cipro 250 MG TAB PO SCH (05:42)
[2019-07-08] MEDS: Furosemide 40 MG TAB PO SCH ×2 (05:42→13:08)
[2019-07-08] MEDS: HumaLOG 300 UNITS/3 ML VIAL SC PRN ×2 (05:44→12:23)
[2019-07-08 06:10] LABS: Band 3 % (5-11); Lymphocytes 4 % (21-51); MDiff Complete? YES; Mean Corpuscular HGB CONC 31.8 g/dL (32.0-36.0); Mean Corpuscular Hemoglobin 29.4 pg (27.0-31.0); Mean Corpuscular Volume 92.6 fL (78.0-98.0); Mean Platelet Volume 7.2 fL (7.4-10.4); Neutrophil 93 % (42-75); Platelet Count 246 thou/uL (130-400); Platelet Morphology Comment Appears Adequate; RBC Distribution Width 13.4 % (11.5-14.5); Red Blood Cell (RBC) Count 4.08 mill/uL (4.70-6.10); White Blood Cell (WBC) Count 21.5 thou/uL (4.8-10.8)
[2019-07-08 06:39] LABS: ALT (SGPT) 33 U/L (8-55); Albumin 2.2 g/dL (3.4-4.8); Alkaline Phosphatase 172 U/L (40-110); Anion Gap 14 mmol/L (10-20); BUN (Urea Nitrogen) 17 mg/dL (8.4-25.7); Calc. Creatinine Clearance 62 mL/min (70-130); Estimated GFR-MDRD 56; Globulin 3.2 g/dL (2.4-3.5); Glucose 319 mg/dL (83-110)
[2019-07-08 06:58] LABS: Chloride 105 mmol/L (98-107)
[2019-07-08 06:59] LABS: Potassium 5.1 mmol/L (3.5-5.1); Sodium 137 mmol/L (136-145)
[2019-07-08 07:00] LABS: Protein, Total 5.4 g/dL (5.8-8.1)
[2019-07-08 07:01] LABS: Carbon Dioxide 22 mmol/L (23-31)
[2019-07-08 07:02] LABS: Bilirubin, Total 0.7 mg/dL (0.2-1.2)
[2019-07-08 07:05] LABS: AST (SGOT) 29 U/L (5-34)
--- NOTE | 2019-07-08 07:28 | PDOC.FM ---
- Subjective Subjective: Still complaining of abdominal discomfort and malaise. - Objective MAR Reviewed: Yes Vital Signs & Weight: Vital Signs (12 hours) Temp Pulse Resp BP Pulse Ox 07/07/19 20:00 98.2 F 94 18 120/60 96 Weight Admit Weight 99.79 kg Weight 101.605 kg I&O: 07/07/19 07/08/19 07/09/19 06:59 06:59 06:59 Intake Total 550 1090 Output Total 252 570 Balance 298 520 Result Diagrams: 07/08/19 05:48 07/08/19 06:16 Phys Exam - Physical Examination Constitutional: NAD HEENT: PERRLA, moist MMs Neck: supple Respiratory: no wheezing, no rales, no rhonchi, clear to auscultation bilateral (breathing more comfortably than yesterday.) Cardiovascular: RRR, no significant murmur Gastrointestinal: soft, non-tender Musculoskeletal: pulses present trace edema Neurological: non-focal, moves all 4 limbs Psychiatric: A&O x 3 Skin: no rash, normal turgor Dx/Plan (1) A-fib Code(s): I48.91 - UNSPECIFIED ATRIAL FIBRILLATION Status: Acute (2) Anxiety Code(s): F41.9 - ANXIETY DISORDER, UNSPECIFIED Status: Acute (3) CAD (coronary artery disease) Code(s): I25.10 - ATHSCL HEART DISEASE OF [place] CORONARY ARTERY W/O ANG PCTRS Status: Acute (4) CHF (congestive heart failure) Code(s): I50.9 - HEART FAILURE, UNSPECIFIED Status: Acute (5) Cholecystitis with perforation of gallbladder Code(s): K82.A2 - PERFORATION OF GALLBLADDER IN CHOLECYSTITIS Status: Acute (6) Depression Code(s): F32.9 - MAJOR DEPRESSIVE DISORDER, SINGLE EPISODE, UNSPECIFIED Status : Acute (7) Diabetes Code(s): E11.9 - TYPE 2 DIABETES MELLITUS WITHOUT COMPLICATIONS Status: Acute (8) HLD (hyperlipidemia) Code(s): E78.5 - HYPERLIPIDEMIA, UNSPECIFIED Status: Acute (9) HTN (hypertension) Code(s): I10 - ESSENTIAL (PRIMARY) HYPERTENSION Status: Acute (10) Hypothyroidism Code(s): E03.9 - HYPOTHYROIDISM, UNSPECIFIED Status: Acute (11) AYDEN (obstructive sleep apnea) Code(s): G47.33 - OBSTRUCTIVE SLEEP APNEA (ADULT) (PEDIATRIC) Status: Acute - Plan Plan: Abdominal pain this morning thought to be related to gas pain as patient had significant flatulence that mildly relieved it. Gave prn simethicone. Gallbladder Perforation, Abscess Formation. S/p perc drain -CT ABD/Pelvis: Large gallbladder fossa multiloculated cyst, likely 2/2 to perforation, abscess -GenSurg: Consulted - recs appreciated. Plans to follow up outpatient with serial scans. -Radiology: Consulted - CT-guided abscess drainage on 07/02. Drain replaced 2019. -ID: Consulted - appreciate rec's. Culture resulted: E. [place], enterococcus, and alpha hemolytic strep. - Kathleen sensitive. On Cipro and Augmentin po. -WBC uptrending. CHF - Will continue home medication regimen and avoid fluid overload - Cards consulted, appreciate rec's. - ECHO EF 40-45%, atrial fibrillation. A-Fib, Rate-Controlled - Will continue to hold Warfarin and DVT PPx per surgery recommendations. - Patient is currently rate-controlled - will continue home medication regimen - Will need to discuss warfarin with pt/family as they do not want aggressive treatment for cholecystitis w/ perforation/abscess. Need to discuss risks vs benefits. Will discuss on on discharge. Urinary retention - s/p in and out cath. Continue to monitor. - If persists, will need reza catheter. DM2 - Increased home doses of Lantus (levemir substitute) due to poor glycemic control. -ACHS accuchecks -Mild SSI -Hypoglycemia Protocol HLD -Will continue home medication regimen HTN -Will continue home medication regimen AYDEN -aware Anxiety/Depression -Patient does not endorse significant symptoms at this time -Continue home medication regimen PCP: Gloria Code: DNAR Diet: CC / HH Activity: Ambulate w/ Assist VTE PPx: None Addendum - Attending - Attending Attestation Date/Time: 07/08/19 7718 I personally evaluated the patient and discussed the management with Dr. Tellez I agree with the History, Examination, Assessment and Plan documented above with any addition or exceptions noted below - Patient without complaints. Afebrile VSS. A/P: 1) Subhepatic abscess- stable on CT; Drain adjusted. On oral antibiotics. Plan to s/c to SNF today. 2) CHF-stable. 3) DM- stable.
[2019-07-08 07:35] VITALS: TEMP 98.3
[2019-07-08] MEDS: Carvedilol 3.125 MG TAB PO SCH (08:18)
[2019-07-08] MEDS: Aspirin 81 mg Enteric Coated Tablet PO SCH (08:18)
[2019-07-08] MEDS: Amoxicillin/Potassium Clav 875 MG TAB PO SCH (08:18)
[2019-07-08] MEDS: FLUoxetine HCl 20 MG CAP PO SCH (08:19)
[2019-07-08] MEDS: Potassium Chloride 20 MEQ TAB PO SCH (08:19)
[2019-07-08] MEDS: Insulin Glargine 15 UNITS in Pre-Filled Syringe 1 EACH SC SCH (08:19)
[2019-07-08] MEDS: Finasteride 5 MG TAB PO SCH (08:19)
[2019-07-08] MEDS: Pantoprazole 40 MG VIAL IVP SCH (08:20)
[2019-07-08] MEDS: Polyethylene Glycol 3350 17 GM Packet PO SCH (08:21)
[2019-07-08] MEDS: Senokot S 8.6-50 MG TAB PO SCH (08:22)
[2019-07-08 12:01] VITALS: BP 116/66
--- NOTE | 2019-07-08 12:53 | PDOC.CPN ---
- Subjective Date: 07/08/19 Time: 12:52 Interval history: No new issues. No chest pain, admits to abdominal discomfort like yesterday. - Review of Systems General: denies: fever/chills, weight/appetite/sleep changes, night sweats, fatigue Respiratory: denies: cough, congestion, shortness of breath, exercise intolerance Cardiovascular: denies: chest pain, palpitation, edema, paroxysmal nocturnal dyspnea, orthopnea Gastrointestinal: reports: abd pain. denies: nausea, vomiting, diarrhea, constipation, GI bleeding Musculoskeletal: denies: pain, tenderness, stiffness, swelling, arthritis/ arthralgias Neurological: denies: numbness, syncope, seizure, weakness - Objective Allergies/Adverse Reactions: Allergies Allergy/AdvReac Type Severity Reaction Status Date / Time No Known Allergies Allergy Verified 07/02/19 22:48 Visit Medications: Current Medications Acetaminophen (Tylenol) 1,000 mg PO Q6H [facility] Last Admin: 07/08/19 08:19 Dose: 1,000 mg Amoxicillin/Clavulanate Potassium (Augmentin) 875 mg PO Q12HR [facility] Last Admin: 07/08/19 08:18 Dose: 875 mg Aspirin (Ecotrin) 81 mg PO DAILY [facility] Last Admin: 07/08/19 08:18 Dose: 81 mg Atorvastatin Calcium (Lipitor) 10 mg PO HS [facility] Last Admin: 07/07/19 20:13 Dose: 10 mg Carvedilol (Coreg) 6.25 mg PO BID [facility] Last Admin: 07/08/19 08:18 Dose: 6.25 mg Ciprofloxacin (Cipro) 500 mg PO BID@0600,2000 [facility] Last Admin: 07/08/19 05:42 Dose: Not Given Dextrose/Water (Dextrose 50%) 25 gm SLOW IVP PRN PRN PRN Reason: Hypoglycemia Finasteride (Proscar) 5 mg PO DAILY [facility] Last Admin: 07/08/19 08:19 Dose: 5 mg Fluoxetine HCl (Prozac) 20 mg PO DAILY [facility] Last Admin: 07/08/19 08:19 Dose: 20 mg Furosemide (Lasix) 40 mg PO 0600,1400 [facility] Last Admin: 07/08/19 05:42 Dose: Not Given Glucagon (Glucagon) 1 mg IM PRN PRN PRN Reason: Hypoglycemia Dextrose/Water (D5w) 1,000 mls @ 0 mls/hr IV .Q0M PRN PRN Reason: Hypoglycemia Insulin Glargine 20 units/ (Miscellaneous Medication) 0.2 mls @ 0 mls/hr SC HS [facility] Last Admin: 07/07/19 20:15 Dose: 0.2 mls Insulin Glargine 15 units/ (Miscellaneous Medication) 0.15 mls @ 0 mls/hr SC QAM [facility] Last Admin: 07/08/19 08:19 Dose: 0.15 mls Insulin Human Lispro (Humalog) 0 units SC .MILD SLIDING SCALE PRN PRN Reason: Mild Correctional Scale Last Admin: 07/08/19 12:23 Dose: 5 unit Insulin Human Lispro (Humalog) 0 units SC .BEDTIME SLIDING SC PRN PRN Reason: Bedtime Correctional Scale Last Admin: 07/07/19 20:16 Dose: 5 unit Ondansetron HCl (Zofran Odt) 4 mg PO Q6H PRN PRN Reason: Nausea/Vomiting Last Admin: 07/04/19 21:39 Dose: 4 mg Pantoprazole Sodium (Protonix) 40 mg IVP DAILY [facility] Last Admin: 07/08/19 08:20 Dose: 40 mg Polyethylene Glycol (Miralax) 17 gm PO DAILYPRN PRN PRN Reason: Constipation Polyethylene Glycol (Miralax) 17 gm PO DAILY [facility] Last Admin: 07/08/19 08:21 Dose: Not Given Potassium Chloride (K-Dur) 40 meq PO BID-[facility] Last Admin: 07/08/19 08:19 Dose: 40 meq Senna/Docusate Sodium (Senokot S) 1 tab PO BID [facility] Last Admin: 07/08/19 08:22 Dose: Not Given Simethicone (Mylicon Chewable) 80 mg PO TIDPRN PRN PRN Reason: Gas Pain Last Admin: 07/06/19 09:32 Dose: 80 mg Sodium Chloride (Flush - Normal Saline) 10 ml IVF Q12HR [facility] Last Admin: 07/08/19 08:22 Dose: 10 ml Sodium Chloride (Flush - Normal Saline) 10 ml IVF PRN PRN PRN Reason: Saline Flush Tramadol HCl (Ultram) 50 mg PO Q6H PRN PRN Reason: Moderate to Severe Pain (6-10) Last Admin: 05/05/20 08:20 Dose: 50 mg Trazodone HCl (Desyrel) 50 mg PO HS PRN PRN Reason: Insomnia Last Admin: 07/08/19 00:22 Dose: 50 mg Vital Signs & Weight: Vital Signs Temp Pulse Pulse Resp BP BP Pulse Ox 07/08/19 09:45 84 116/66 07/08/19 08:00 98 07/08/19 07:34 98.3 F 83 20 99/62 98 Admit Weight 220 lb Weight 224 lb - Physical Exam General: no apparent distress HEENT: mucus membranes moist Neck: supple neck Cardiac: irregularly regular Lungs: normal breath sounds Neuro: no lateralizing findings Abdomen: active bowel sounds Extremities: no edema Skin: clear Musculoskeletal: no pain - Labs Result Diagrams: 07/08/19 05:48 07/08/19 06:16 - Telemetry Supraventricular conduction: atrial fibrillation - Assessment/Plan Assessment/Plan: 1. Ruptured cholecystitis, abdominal abscess. 2. Chronic systolic heart failure. 3. Chronic afib rate controlled. 4. Presence of a PPM. PLAN: - EF at 40-45%. - Continue home dose of PO lasix. - CV stable.
--- NOTE | 2019-07-09 09:12 | PQF ---
TUNG RAYA ANNA MD [id number] CLINICAL DOCUMENTATION CLARIFICATION FORM: POST DISCHARGE Addendum to original discharge summary date: ____ Late entry note date: __ DATE:07/09/2019 ATTN: Ariane Carlin Please exercise your independent, professional judgment in responding to the clarification form. Clinical indicators are provided on the bottom of this form for your review Please check appropriate box(es): [ x ] Sepsis due to Perforated Gallbladder with asbcess and Liver abscess [ ] SIRS due to non-infectious process (please specify etiology) [ ] with organ dysfunction [ ] without organ dysfunction [ ] Severe sepsis with acute organ dysfunction of: (Examples: respiratory failure, encephalopathy, acute kidney failure, other) [ ] Septic Shock [ ] Localized infection without sepsis [ ] Other diagnosis [ ] Unable to determine In addition, please specify: Present on Admission (POA): [ x ] Yes [ ] No [ ] Unable to determine For continuity of documentation, please document condition throughout progress notes and discharge summary. Thank You. CLINICAL INDICATORS - SIGNS / SYMPTOMS / LABS Laboratory 07/01 WBC 28.8, plt count 310, Neutrophils 81, Lymphocytes 6, Lactic acid 2.0 Abdominal abscess culture 07/02 Positive with E Coli, Enterococcus Faecalis Vital signs 07/01 BP 114/63, Pulse 121, Resp 22, Temp 98.0 Ed note p2 07/01 SIRS scoring: yes, pt did meet the criteria H&P p1 07/01 Dr Miranda presented for evaluation for RUQ discomfort H&P p6 07/01 Dr Miranda Lareg gallbladder fossa multiloculated cyst, .likely 2/2 perforation, abscess H&P p8 07/01 Dr Miranda Leukocytosis 2/2 Perforated cholecystitis with abscess H&P p8 07/01 Dr Miranda does not meet criteria for sepsis, no need for blood cs at this time Consult p3 r Andrea Severe inflammatory reaction, right subhepatic RISK FACTORS H&P p1 07/01 88 year-old H&P p1 07/01 HTN H&P p1 07/01 CHF H&P p1 07/01 CAD H&P p1 07/01 Afib H&P p1 07/01 COPD H&P p1 07/01 DM H&P p8 07/01 - Perforated Cholecystitis with abscess Consult p3 07/01 Hepatic abscess TREATMENTS: MAY 05 IV Zosyn 4.5 MAY 05 IV Vancomycin 1gm MAY 05 IVF NS 1L MAY 05 IV Ampicillin 3gm MAY [address] Abscess Drainage 07/02 Joe Stanley Abdomen ultrasound 07/01 GS consult 07/01 Cullen Ramirez (This form is maintained as a part of the permanent medical record) 2014 [employer] All Rights Reserved [email or web address]
--- NOTE | 2019-07-09 15:12 | DIS ---
DATE OF ADMISSION: 07/02/2019 DATE OF DISCHARGE: 07/08/2019 RESIDENT: Radha Tellez MD ADMITTING ATTENDING: Dr. Steven Branham. DISCHARGE ATTENDING: Ariane Silva MD CONSULTS: General Surgery, Dr. Mendez; Cardiology, Dr. Owusu; Infectious Disease, Dr. Can. PROCEDURES: CT-guided percutaneous drain of the gallbladder. Echocardiogram revealed an EF of 40% to 45%, atrial fibrillation, AICD, with placement of percutaneous drain. PRIMARY DIAGNOSIS: Subacute cholecystitis complicated by perforation with abscess. SECONDARY DIAGNOSES: Heart failure with reduced ejection fraction, atrial fibrillation, diabetes, hyperlipidemia, hypertension, obstructive sleep apnea, anxiety, depression. DISCHARGE MEDICATIONS: 1. Tylenol. 2. Aspirin. 3. Lipitor. 4. Carvedilol. 5. Clonidine. 6. Finasteride. 7. Fluoxetine. 8. Furosemide. 9. Guaifenesin. 10. Nevis. 11. Loperamide. 12. Milk of magnesia. 13. Metformin. 14. Protonix. 15. Trazodone. 16. Augmentin. 17. Ciprofloxacin. 18. Lantus 20 units subcu at bedtime, 15 units subcu a.m. 19. Zofran. 20. Tramadol. CONTINUED MEDICATION: Warfarin. HISTORY OF PRESENT ILLNESS/HOSPITAL COURSE: Mr. Kamilah Montoya is an 88-year-old gentleman who presented to the ER for epigastric discomfort that has been present for weeks. He denied pain, however, endorsed generalized abdominal discomfort. He is a resident of [facility]. On initial evaluation, he was found to have enlarged gallbladder fossa, multiloculated cyst, likely secondary to perforation with an abscess on CT of abdomen and pelvis. His white count was 28.8. His liver enzymes were mildly elevated. AST 48, ALT 70. He was started on Zosyn for antibiotic coverage. Dr. Mendez was consulted for surgical management. Dr. Can was consulted for Infectious Disease. On 07/02, the day after admission, he underwent a CT-guided percutaneous drainage of this abscess. Tolerated the procedure well. Culture of the fluid revealed E coli and enterococcus. After several days of antibiotics, the patient was discharged on Augmentin and Cipro for an indeterminate amount of time. He will follow up with Dr. Mendez for serial CT scans and Dr. Can for management of antibiotics. On discharge, disposition guarded. DISCHARGE INSTRUCTIONS: 1. Location: nursing. 2. Diet: Heart healthy. 3. Activity: Ad dawit. 4. Follow up with primary care physician as needed. Job ID: [id number]
--- NOTE | 2019-07-15 15:48 | EKG ---
Test Reason : Blood Pressure : / mmHG Vent. Rate : 109 BPM Atrial Rate : 064 BPM P-R Int : 000 ms QRS Dur : 084 ms QT Int : 338 ms P-R-T Axes : 000 -08 170 degrees QTc Int : 455 ms Demand pacemaker; interpretation is based on intrinsic rhythm Atrial fibrillation with rapid ventricular response with premature ventricular or aberrantly conducte d complexes Low voltage QRS Cannot rule out Anterior infarct , age undetermined Abnormal ECG Confirmed by DIYA DOMINGUEZ DO ([id number]), food expeditor AZRA GAUTHIER ([id number]) on 07/15/2019 3:47:33 PM Referred By: Confirmed By:DIYA DOMINGUEZ DO
== END 2019-07-08 13:24 | DRG 871 ==
LOC: ERS 14:17 → T4-B 17:07
PROVIDERS: ADMIT Student in an Organized Health Care Education/Training Program; ATTEND Student in an Organized Health Care Education/Training Program
PROC: 30283B1 Transfusion of Nonautologous 4-Factor Prothrombin Complex Concentrate into Vein, Percutaneous Approach (ICD-10-PCS; 2019-07-02)
PROC: 0F9430Z Drainage of Gallbladder with Drainage Device, Percutaneous Approach (ICD-10-PCS; principal; 2019-07-05)
PROC: 0W9G30Z Drainage of Peritoneal Cavity with Drainage Device, Percutaneous Approach (ICD-10-PCS; 2019-07-05)
DX: A41.51 Sepsis due to Escherichia coli [E. coli] (principal); K75.0 Abscess of liver; I50.23 Acute on chronic systolic (congestive) heart failure; K81.0 Acute cholecystitis; I48.20 Chronic atrial fibrillation, unspecified; K82.A2 Perforation of gallbladder in cholecystitis; I12.0 Hypertensive chronic kidney disease with stage 5 chronic kidney disease or end stage renal disease; A41.81 Sepsis due to Enterococcus; Z66 Do not resuscitate; E78.5 Hyperlipidemia, unspecified; G47.33 Obstructive sleep apnea (adult) (pediatric); F32.9 Major depressive disorder, single episode, unspecified; E03.9 Hypothyroidism, unspecified; I25.10 Atherosclerotic heart disease of native coronary artery without angina pectoris; F41.9 Anxiety disorder, unspecified; F34.1 Dysthymic disorder; E11.9 Type 2 diabetes mellitus without complications; L57.8 Other skin changes due to chronic exposure to nonionizing radiation; I25.5 Ischemic cardiomyopathy; R33.9 Retention of urine, unspecified; J44.9 Chronic obstructive pulmonary disease, unspecified; Z95.5 Presence of coronary angioplasty implant and graft; Z87.820 Personal history of traumatic brain injury; Z85.828 Personal history of other malignant neoplasm of skin; X32 Exposure to sunlight; Z90.2 Acquired absence of lung [part of]; Z95.810 Presence of automatic (implantable) cardiac defibrillator; Z79.899 Other long term (current) drug therapy; Z79.82 Long term (current) use of aspirin; Z79.4 Long term (current) use of insulin
CPT/HCPCS: 36415; 36416; 49020; 49423; 49424; 71045; 74150; 74177; 76705; 77002; 80053; 81001; 81003; 82550; 83605; 83735; 84100; 85007; 85025; 85027; 85060; 85730; 86850; 86900; 86901; 87070; 87077; 87086; 87186; 87205; 89051; 93005; 93306; 96361; 96365; 96374; C1729; C9113; C9132; J0295; J1815; J1940; J2250; J2543; J3010; J3370; J3430; J3490; Q0162; Q0177; Q9967